=== PATIENT | female | born 1950 | race Caucasian/White ===

== ENCOUNTER 2018-07-03 19:23 | Inpatient (IN) | payer MEDICARE, OTHER ==
[~2018-07-03] VITALS: Ht 157.5 cm; Wt 88.4 kg
[~2018-07-03 19:23] MED LIST: ASPI-378 PO; CHOL500016 PO; COEN200C11 PO; ENAL2.5T PO; FAMO-12 PO; NEBI5TAB2 PO; OMEP-96 PO; PROM1SUP4 PO; RANO1000 PO; SERT-274 PO; SIMV-13 PO
[2018-07-03] MEDS ORDERED: SODIUM CHLORIDE 0.9% 500 ML IV ONE (19:40)
[2018-07-03] MEDS ORDERED: NALOXONE HCL 1MG/ML 2ML SYRINGE IV ONE (19:45)
[2018-07-03] MEDS: MIDAZOLAM DRIP 50 mg/50mL 50 ML IV SCH (19:58)
[2018-07-03] MEDS ORDERED: MIDAZOLAM DRIP 50 mg/50mL 50 ML IV ONE (20:04)
[2018-07-03] MEDS ORDERED: IOHEXOL 350 MG/ML 100ML IJ ONE (20:06)
[2018-07-03] MEDS ORDERED: NOREPINEPHRINE 8 MG/250ML KIT 250 ML IV SCH (20:27)
[2018-07-03] MEDS ORDERED: fentaNYL Drip 2500mCg/250mlNS 250 ML IV SCH (20:27)
[2018-07-03 20:29] LABS: Basophils # (auto) 0.1 uL; Eosinophils # (auto) 0.4 uL; Mean Corpuscular Hgb Conc. 29.7 g/dL (32.0-36.0); Platelet Count (auto) 177 10^3/uL (140-450); Red Cell Distribution Width 15.1 % (11.8-14.3)
[2018-07-03 20:31] LABS: Basophils % (auto) 0.8 % (0.0-2.0); Eosinophils % (auto) 2.5 % (0.0-7.0); Hemoglobin 13.4 g/dL (12.2-16.2); Lymphocytes # (auto) 6.8 uL; Lymphocytes % (auto) 46.5 % (10.0-50.0); Mean Corpuscular Hemoglobin 28.1 pg (28.0-32.0); Mean Corpuscular Volume 94.6 fL (80.0-100.0); Monocytes # (auto) 0.5 uL; Monocytes % (auto) 3.4 % (0.0-12.0); Neutrophils # (auto) 6.8 uL; Neutrophils % (auto) 46.8 % (37.0-80.0); Red Blood Cells 4.75 10^6/uL (4.0-5.20); White Blood Cell 14.6 10^3/uL (4.4-10.8)
[2018-07-03] MEDS ORDERED: PROPOFOL 100 ML IV ONE (20:35)
[2018-07-03 20:43] LABS: Albumin 2.8 g/dL (3.4-5.0); Anion Gap 21 (5-15); Blood Urea Nitrogen 13 mg/dL (7-18); Calcium 7.7 mg/dL (8.5-10.1); Carbon Dioxide 14 mmol/L (21-32); Chloride 103 mmol/L (98-107); Glucose 334 mg/dL (74-106); Potassium 3.9 mmol/L (3.5-5.1); Sodium 138 mmol/L (136-145)
[2018-07-03 20:45] LABS: Alanine Aminotransferase 71 U/L (13-56); Aspartate Aminotransferase 86 U/L (15-37); BUN/Creatinine Ratio 10.5; GFR African American 55 mL/min; GFR Non-African American 46 mL/min; INR 1.12 (0.9-1.15); Partial Thromboplastin Time 43.6 sec (23.64-32.05)
[2018-07-03] MEDS ORDERED: cefTRIAXone 1GM/50ML D5W 50 ML IV ONE (20:45)
[2018-07-03 20:47] LABS: Alkaline Phosphatase 134 U/L (45-117); Bilirubin, Total 0.4 mg/dL (0.2-1.0); Total Protein 5.5 g/dL (6.4-8.2)
[2018-07-03 21:04] LABS: Urine Bacteria MOD /hpf (None Seen); Urine Blood Negative /uL (Negative); Urine Specific Gravity 1.004 (1.001-1.035); Urine WBC 3 /hpf (0 - 5)
[2018-07-03] MEDS: PROPOFOL 100 ML IV SCH ×2 (21:17→23:28)
[2018-07-03] MEDS ORDERED: InsuLIN R (HUMAN) 100 UNITS in SODIUM CHL 0.9% 99 ML IV SCH (21:18)
[2018-07-03] MEDS ORDERED: ONDANSETRON HCL 4 MG/2 ML VIAL IV PRN (21:30)
[2018-07-03] MEDS ORDERED: ASPirin 300 MG RECTAL SUPP PR ONE (21:30)
[2018-07-03] MEDS ORDERED: LEVOFLOXACIN 500MG 100 ML IV ONE (21:30)
[2018-07-03] MEDS ORDERED: DEXTROSE (50%) 50ML SYRG IV PRN ×2 (21:30)
[2018-07-03] MEDS ORDERED: InsuLIN REG 1unit/0.01ml Soln (100units/ml) IV ONE (21:30)
[2018-07-03] MEDS ORDERED: NITROGLYCERIN 0.4 MG SL TAB SL PRN (21:30)
[2018-07-03] MEDS ORDERED: MORPHINE SULF INJ 2 MG/ML SYRINGE 1ML IV PRN (21:30)
[2018-07-03] MEDS ORDERED: ENOXAPARIN SOD 100 MG/1 ML SYRINGE SC ONE (21:30)
[2018-07-03] MEDS ORDERED: AZITHROMYCIN 500MG/ 250ML 250 ML IV ONE (21:45)
[2018-07-03 21:53] LABS: Lactic Acid w/Reflex 10.1 mmol/L (0.4-2.0)
[2018-07-03 21:54] VITALS: BP 104/89
[2018-07-03 22:37] LABS: Alcohol, Urine < 3.0 mg/dL (0-5); Amphetamine Screen, Urine NEGATIVE (NEGATIVE); Barbiturate Scree,Urine NEGATIVE (NEGATIVE); Benzodiazephine Screen, Urine NEGATIVE (NEGATIVE); Cannabinoid Screen, Urine POSITIVE (NEGATIVE); Cocaine Screen, Urine NEGATIVE (NEGATIVE); Opiate Scree,Urine NEGATIVE (NEGATIVE); Phencyclidine Screen, Urine NEGATIVE (NEGATIVE)
[2018-07-03] MEDS ORDERED: SODIUM BICARBONATE 8.4 % INJ 50ML VIAL IV ONE (23:00)
[2018-07-03] MEDS: SODIUM CHLORIDE 0.9% 1,000 ML IV SCH (23:35)
[2018-07-03] MEDS ORDERED: FUROSEMIDE 20 MG/2 ML VIAL IV ONE (23:45)
[2018-07-04] VITALS (103 sets, daily range): BP systolic 79–165; BP diastolic 54–95
--- NOTE | 2018-07-04 | NUR ---
OPENING NOTE ASSUMED CARE OF PATIENT PATIENT RCVD LAYING ON BED IN SEMI-FOWLERS POSITION, INTUBATED AND SEDATED ON PROPOFOL, SEE IV SPREADSHEET FOR MEDICATIONS AND TITRATION. PATIENT RESPONDS TO LIGHT PAIN, VITAL SIGNS WITHIN NORMAL LIMITS, NO S/S OF DISTRESS NOTED, PATIENT DOES NOT APPEAR TO BE IN PAIN AT THIS TIME. VENTILATOR PLUGGED INTO RED OUTLET/PER VAP PROTOCOL. AMBU BAG AT BEDSIDE. NOTED SANTIAGO CATHETER IN PLACE AND DRAINING TO GRAVITY. 20 G IV TO ERIST WRIST HEP LOCKED WITH NO S/S OF INFILTRATION OR PHLEBITIS. TRIPLE LUMEN CATH TO RIGHT IJ PATENT, INTACT AND ASYMPTOMATIC. MOUTH CARE AND SUCTION PROVIDED. BED IN LOWEST LOCKED POSITION, SIDE RAILS UP X2, PATIENT IN FULL VIEW OF NURSES STATION, SAFETY MAINTAINED, WILL CONTINUE TO MONITOR.
--- NOTE | 2018-07-04 00:30 | NUR ---
BM/BATH/BED/CHANGE LARGE BROWN COLORED WATERY BM PATIENT GIVEN PARTIAL BATH. CLEANED WITH SOAP AND WATER, FULL LINEN AND GOWN CHANGE PATIENT TOLERATED WELL
--- NOTE | 2018-07-04 01:00 | NUR ---
FAMILY AT BEDSIDE PER DAUGHTER "MY MOTHER WOULD NOT WANT TO LIVE THIS WAY, SHE WOULD NOT WANT TUBES HAVING TO KEEP HER ALIVE." PER DAUGHTER SHE WILL COME BACK IN THE MORNING TO CHANGE PATIENT TO DNR STATUS. DAY SHIFT RN MADE AWARE OF THIS
--- NOTE | 2018-07-04 01:10 | NUR ---
BM/BATH/BED/CHANGE LARGE BROWN COLORED WATERY BM PATIENT GIVEN PARTIAL BATH. CLEANED WITH SOAP AND WATER, FULL LINEN AND GOWN CHANGE PATIENT TOLERATED WELL
[2018-07-04] MEDS: ACCU-CHEK COMFORT CURVE STRIP VI SCH ×11 (01:12→10:22)
[2018-07-04] MEDS: InsuLIN REG 1unit/0.01ml Soln (100units/ml) SC SCH ×2 (01:12→06:00)
[2018-07-04] MEDS: PROPOFOL 100 ML IV SCH (01:54)
--- NOTE | 2018-07-04 02:00 | NUR ---
FAMILY LEFT THE BEDSIDE FOR THE NIGHT
[2018-07-04] MEDS: ACETAMINOPHEN 325 MG TAB PO PRN (02:15)
--- NOTE | 2018-07-04 02:30 | NUR ---
BM/BATH/BED/CHANGE LARGE BROWN COLORED WATERY BM PATIENT GIVEN PARTIAL BATH. CLEANED WITH SOAP AND WATER, FULL LINEN AND GOWN CHANGE PATIENT TOLERATED WELL
--- NOTE | 2018-07-04 03:30 | NUR ---
C-DIFF SAMPLE SENT TO LAB
[2018-07-04 03:45] LABS: Albumin 2.9 g/dL (3.4-5.0); Calcium 7.6 mg/dL (8.5-10.1); Potassium 3.3 mmol/L (3.5-5.1)
[2018-07-04 03:48] LABS: BUN/Creatinine Ratio 19.6
[2018-07-04 04:00] LABS: Bilirubin, Total 0.5 mg/dL (0.2-1.0); Total Protein 5.5 g/dL (6.4-8.2)
[2018-07-04 04:01] LABS: Basophils # (auto) 0 uL; Basophils % (auto) 0.3 % (0.0-2.0); Eosinophils # (auto) 0 uL; Eosinophils % (auto) 0.1 % (0.0-7.0); Hemoglobin 13.9 g/dL (12.2-16.2); Lymphocytes # (auto) 0.5 uL; Lymphocytes % (auto) 5.4 % (10.0-50.0); Mean Corpuscular Hemoglobin 27.8 pg (28.0-32.0); Mean Corpuscular Volume 84.3 fL (80.0-100.0); Monocytes # (auto) 0.3 uL; Monocytes % (auto) 3.5 % (0.0-12.0); Neutrophils # (auto) 8.9 uL; Neutrophils % (auto) 90.7 % (37.0-80.0); Platelet Count (auto) 167 10^3/uL (140-450); Red Blood Cells 4.99 10^6/uL (4.0-5.20); Red Cell Distribution Width 13.5 % (11.8-14.3); White Blood Cell 9.8 10^3/uL (4.4-10.8)
[2018-07-04] MEDS: MIDAZOLAM DRIP 50 mg/50mL 50 ML IV SCH (04:30)
[2018-07-04] MEDS ORDERED: IOHEXOL 350 MG/ML 100ML IJ ONE (08:01)
--- NOTE | 2018-07-04 09:00 | NUR ---
2D ECHO DONE. SEE EMR FOR RESULTS.
--- NOTE | 2018-07-04 09:40 | NUR ---
DR. WAYNE HERE TO SEE PATIENT. SEE MD NOTES AND EMR FOR ANY NEW ORDERS.
[2018-07-04] MEDS: SODIUM CHLORIDE 0.9% 1,000 ML IV SCH ×2 (09:57→12:15)
[2018-07-04] MEDS ORDERED: ASPirin 81 mg TAB PO SCH (10:00)
[2018-07-04] MEDS ORDERED: HEPARIN SODIUM (PORCINE) 5000 UNITS/ML 1ML VIAL SC SCH (10:00)
[2018-07-04] MEDS ORDERED: LEVOFLOXACIN 500MG 100 ML IV SCH (10:00)
[2018-07-04] MEDS: FLORASTOR (S. BOULARDII) 250 MG CAP PO SCH (10:20)
[2018-07-04] MEDS: PANTOPRAZOLE 40 MG TAB PO SCH (10:20)
--- NOTE | 2018-07-04 10:50 | NUR ---
DR. PEREZ HERE TO SEE PATIENT. SEE MD NOTES AND EMR FOR ANY NEW ORDERS.
--- NOTE | 2018-07-04 11:00 | NUR ---
WOUND CARE NOTE: IN TO ASSESS PATIENT'S SKIN AT THIS TIME D/T LOW ARUNA SCORE/INTUBATION STATUS. PATIENT RECENTLY ADMITTED TO [facility] WITH DIAGNOSIS OF CARDIO PULMONARY RESUSCITATION. PATIENT IS CURRENTLY INTUBATED, SEDATED. CURRENT ARUNA SCORE IS 10. PATIENT IS WOUND FREE AT THIS TIME. WITH RED BUT BLANCHABLE BILATERAL HEELS, AND PINK BLANCHABLE BONY PROMINENCES TO ALL OTHER BONY PROMINENCES. APPLIED OPTIFOAM GENTLE SACRAL DRESSING PREVENTATIVE AT THIS TIME. PATIENT REPOSITIONED ONTO LEFT SIDE, REDISTRIBUTING PRESSURE POINTS WITH PILLOWS/WEDGES. RECOMMEND: FREQUENT TURN SCHEDULE Q 2 HOURS, PRN CONDITION PERMITS, WITH PRESSURE REDISTRIBUTION USING PILLOWS/WEDGES, BID/PRN APPLICATION WITH MOISTURE BARRIER CREAM, COVERING UPPER MEDIAL SACRUM WITH OPTIFOAM GENTLE SACRAL DRESSING PREVENTATIVE, OFFLOADING HEELS WITH PILLOWS OR KIANA FOAM BOOTS, DIETARY CONSULT, CONTINUED MONITORING BY WOUND CARE TEAM.
[2018-07-04] MEDS ORDERED: FUROSEMIDE 40 MG/4 ML VIAL IV ONE (11:45)
[2018-07-04] MEDS ORDERED: SODIUM CHLORIDE 0.9% 1,000 ML IV SCH (11:45)
[2018-07-04] MEDS: PIPERACILLIN-TAZOB 3.375GM 100 ML IV SCH ×2 (12:00→17:58)
[2018-07-04] MEDS ORDERED: NALOXONE HCL 1MG/ML 2ML SYRINGE IV ONE (12:41)
[2018-07-04] MEDS ORDERED: DEXTROSE (50%) 50ML SYRG IV ONE (12:41)
[2018-07-04] MEDS ORDERED: EPINEPHrine HCL 1 MG/10 ML SYRG IV ONE (12:41)
--- NOTE | 2018-07-04 12:47 | NUR ---
Respiratory note: PER DR. Jade WASHINGTON'S ORDERS, CHANGED PT VENT SETTINGS TO AC 14, 600, +6, 30%. PT TOLERATING CHANGES WELL. RN AWARE OF CHANGES. WILL CONTINUE TO MONITOR.
[2018-07-04] MEDS: POTASSIUM CHL 20MEQ/100ML 100 ML IV SCH ×2 (13:26→14:47)
[2018-07-04] MEDS: ALBUTEROL SULF 2.5 MG/0.5ML(0.5%) NEB SOLN NEB SCH ×3 (16:04→22:30)
[2018-07-04] MEDS: IPRATROPIUM BROM 0.5 MG/2.5ML INH SOL NEB SCH ×3 (16:04→22:30)
--- NOTE | 2018-07-04 16:11 | NUR ---
DR. MICHAEL MADE AWARE OF US DUPLEX ARTERIAL STUDY AT THIS TIME. NO NEW ORDERS OBTAINED AT THIS TIME.
--- NOTE | 2018-07-04 16:30 | NUR ---
CALL OUT TO DR. HORNER TO LET HIM KNOW THE RESULTS OF THE US DOPLER STUDY. AWAITING CALL BACK.
[2018-07-04] MEDS ORDERED: HEPARIN DRIP/D5W 100UNITS/ML 250 ML IV SCH (17:21)
[2018-07-04] MEDS ORDERED: HEPARIN SODIUM (PORCINE) 5000 UNITS/ML 1ML VIAL IV ONE (17:30)
[2018-07-04 17:47] LABS: Basophils # (auto) 0 uL; Basophils % (auto) 0.3 % (0.0-2.0); Eosinophils # (auto) 0 uL; Hematocrit 40.2 % (36.0-46.0); Hemoglobin 13.5 g/dL (12.2-16.2); Lymphocytes # (auto) 0.8 uL; Lymphocytes % (auto) 8.5 % (10.0-50.0); Mean Corpuscular Hgb Conc. 33.6 g/dL (32.0-36.0); Mean Corpuscular Volume 83.2 fL (80.0-100.0); Monocytes # (auto) 0.2 uL; Monocytes % (auto) 2.3 % (0.0-12.0); Neutrophils # (auto) 8.6 uL; Neutrophils % (auto) 88.9 % (37.0-80.0); Nucleated Red Blood Cells % 0.1 %; Platelet Count (auto) 145 10^3/uL (140-450); Red Blood Cells 4.84 10^6/uL (4.0-5.20); Red Cell Distribution Width 13.9 % (11.8-14.3); White Blood Cell 9.6 10^3/uL (4.4-10.8)
[2018-07-04] MEDS: FUROSEMIDE 40 MG/4 ML VIAL IV SCH (17:57)
[2018-07-04 19:00] LABS: INR 1.31 (0.9-1.15); Partial Thromboplastin Time 39.9 sec (23.64-32.05)
--- NOTE | 2018-07-04 19:55 | NUR ---
Patient is taken to ct by Farhat VALERIO and Derek LAL.
--- NOTE | 2018-07-04 20:00 | NUR ---
HEPARIN DRIP HEPARIN DRIP KEPT AT 1700 UNITS /HR ORDERED. PATIENT WAS RECEIVING 1800 UNIS/HR.
--- NOTE | 2018-07-04 20:25 | NUR ---
PATIENT IS BACK FROM CT WITHOUT ANY INCIDENT. VITAL SIGNS ARE STABLE.
[2018-07-04] MEDS ORDERED: cefTRIAXone 1GM/50ML D5W 50 ML IV SCH (21:00)
[2018-07-04] MEDS ORDERED: AZITHROMYCIN 500MG/ 250ML 250 ML IV SCH (22:00)
--- NOTE | 2018-07-04 23:30 | NUR ---
Patient bathe/linen change Patient given complete chlorhexidine bath. Skin integrity assessed for any changes. Linens changed. Patient repositioned for comfort.
[2018-07-05] VITALS (106 sets, daily range): BP systolic 73–127; BP diastolic 36–72
[2018-07-05] MEDS: PIPERACILLIN-TAZOB 3.375GM 100 ML IV SCH ×4 (00:23→17:34)
[2018-07-05] MEDS: MIDAZOLAM DRIP 50 mg/50mL 50 ML IV SCH ×3 (01:28→22:02)
[2018-07-05] MEDS: ALBUTEROL SULF 2.5 MG/0.5ML(0.5%) NEB SOLN NEB SCH ×6 (02:29→22:26)
[2018-07-05] MEDS: IPRATROPIUM BROM 0.5 MG/2.5ML INH SOL NEB SCH ×6 (02:29→22:26)
[2018-07-05] MEDS: FUROSEMIDE 40 MG/4 ML VIAL IV SCH ×2 (06:23→17:34)
[2018-07-05 06:38] LABS: Basophils # (auto) 0 uL; Basophils % (auto) 0.5 % (0.0-2.0); Eosinophils # (auto) 0 uL; Eosinophils % (auto) 0.3 % (0.0-7.0); Hematocrit 35.5 % (36.0-46.0); Hemoglobin 11.8 g/dL (12.2-16.2); Lymphocytes % (auto) 12.9 % (10.0-50.0); Mean Corpuscular Hemoglobin 27.7 pg (28.0-32.0); Mean Corpuscular Hgb Conc. 33.1 g/dL (32.0-36.0); Mean Corpuscular Volume 83.7 fL (80.0-100.0); Monocytes # (auto) 0.3 uL; Monocytes % (auto) 3.5 % (0.0-12.0); Neutrophils # (auto) 6.6 uL; Neutrophils % (auto) 82.8 % (37.0-80.0); Platelet Count (auto) 134 10^3/uL (140-450); Red Blood Cells 4.25 10^6/uL (4.0-5.20); Red Cell Distribution Width 14.1 % (11.8-14.3)
[2018-07-05 07:01] LABS: Calcium 7.5 mg/dL (8.5-10.1); Potassium 3.6 mmol/L (3.5-5.1)
[2018-07-05 07:04] LABS: Albumin 2.4 g/dL (3.4-5.0); BUN/Creatinine Ratio 18.4; Bilirubin, Total 1.1 mg/dL (0.2-1.0); Magnesium 1.8 mg/dL (1.6-2.6)
[2018-07-05 07:26] LABS: INR 1.31 (0.9-1.15)
[2018-07-05 07:41] LABS: Partial Thromboplastin Time > 170.0 sec (23.64-32.05)
--- NOTE | 2018-07-05 07:43 | NUR ---
CALL FROM LAB REPORTING APTT 170. HEPARIN DRIP STOPPED PER PROTOCOL AND WILL DECREASE BY 300 IN 1 HOUR.
[2018-07-05] MEDS: SODIUM CHLORIDE 0.9% 1,000 ML IV SCH (08:15)
--- NOTE | 2018-07-05 08:40 | NUR ---
HEPARIN RESUMED AT 1100 UNITS/HR PER PROTOCOL.
--- NOTE | 2018-07-05 08:51 | NUR ---
DR. HORNER HERE TO SEE PATIENT. DR. HORNER WAS TOLD ABOUT THE POSITIVE BLOOD CULTURE AND CURRENT ANTIBIOTICS PATIENT IS ON. SINCE NO C&S ORDERS TO REMAIN THE SAME AT THIS TIME. SEE MD NOTES AND EMR FOR ANY NEW ORDERS.
[2018-07-05] MEDS ORDERED: HEPARIN DRIP/D5W 100UNITS/ML 250 ML IV SCH (09:00)
--- NOTE | 2018-07-05 09:10 | NUR ---
DR. BAE HERE TO SEE PATIENT. SEE MD NOTES AND EMR FOR ANY NEW ORDERS.
[2018-07-05] MEDS: NOREPINEPHRINE 8 MG/250ML KIT 250 ML IV SCH (10:32)
[2018-07-05] MEDS: PANTOPRAZOLE 40 MG TAB PO SCH (11:01)
[2018-07-05] MEDS: FLORASTOR (S. BOULARDII) 250 MG CAP PO SCH (11:01)
[2018-07-05] MEDS: ASPirin 81 mg TAB PO SCH (11:01)
[2018-07-05 11:49] LABS: INR 1.17 (0.9-1.15)
--- NOTE | 2018-07-05 11:49 | NUR ---
NUTRITION CONSULT/ASSESSMENT NOTES Please refer to link notes of nutrition screen form filed under the intervention section of the plan of care for further details. Est. Needs: 1350 kcal to 1800 kcal (15-20 kcal/kgBW), 73 gms to 91 gms pro (0.8-1.0 gms/kgBW). Will continue to monitor pertinent labs and reassess nutrient need prn Thank you for this consult. Addendum: 07/05/18 at [address] Amended: Links added.
[2018-07-05 12:01] LABS: Partial Thromboplastin Time 140.3 sec (23.64-32.05)
--- NOTE | 2018-07-05 12:30 | NUR ---
DR. OLIVERA HERE TO SEE PATIENT. SEE MD NOTES AND EMR FOR ANY NEW ORDERS.
--- NOTE | 2018-07-05 12:40 | NUR ---
DR. WASHINGTON HERE TO SEE PATIENT. SEE MD NOTES AND EMR FOR ANY NEW ORDERS.
--- NOTE | 2018-07-05 19:00 | NUR ---
OPENING NOTES ASSUMED CARE, ON VENT SIMV MODE, ON SEDATION WITH VERSED, LEVOPHED AND HEPARIN DRIP INFUSING IN THE RIGHT INTERNAL JUGULAR VEIN, SEE SPREADSHEET FOR TITRATION, OGT IN PLACE, SANTIAGO CATHETER DRAINING TO A CLEAR YELLOW URINE. BED IN LOWEST POSITION WITH SIDE RAILS UP, BED ALARM ON. WILL CONTINUE CARE.
[2018-07-05 19:46] LABS: INR 1.06 (0.9-1.15)
--- NOTE | 2018-07-05 20:05 | NUR ---
APTT 45, NO BOLUS OF HEPARIN GIVEN BUT HEPARIN DRIP INCREASED TO 2ML AND TITRATED TO 800 UNITS. NEXT PT/PTT DRAW @0200.
[2018-07-05] MEDS: HEPARIN DRIP/D5W 100UNITS/ML 250 ML IV SCH (20:15)
--- NOTE | 2018-07-05 22:28 | NUR ---
RR 30'S-40'S, RAVIN RT AT BEDSIDE AND SWITCHED VENT SETTING TO AC MODE.
[2018-07-06] VITALS (108 sets, daily range): BP systolic 82–143; BP diastolic 41–81
[2018-07-06] MEDS: PIPERACILLIN-TAZOB 3.375GM 100 ML IV SCH ×4 (00:03→17:41)
[2018-07-06 02:12] LABS: Basophils # (auto) 0 uL; Basophils % (auto) 0.4 % (0.0-2.0); Eosinophils # (auto) 0.1 uL; Hematocrit 35.3 % (36.0-46.0); Hemoglobin 11.6 g/dL (12.2-16.2); Lymphocytes # (auto) 0.8 uL; Lymphocytes % (auto) 8.7 % (10.0-50.0); Mean Corpuscular Hemoglobin 27.6 pg (28.0-32.0); Mean Corpuscular Hgb Conc. 32.9 g/dL (32.0-36.0); Mean Corpuscular Volume 83.8 fL (80.0-100.0); Monocytes # (auto) 0.3 uL; Monocytes % (auto) 2.7 % (0.0-12.0); Neutrophils # (auto) 8.3 uL; Neutrophils % (auto) 87.2 % (37.0-80.0); Platelet Count (auto) 135 10^3/uL (140-450); Red Blood Cells 4.21 10^6/uL (4.0-5.20); Red Cell Distribution Width 14.3 % (11.8-14.3); White Blood Cell 9.5 10^3/uL (4.4-10.8)
[2018-07-06] MEDS: ALBUTEROL SULF 2.5 MG/0.5ML(0.5%) NEB SOLN NEB SCH ×6 (02:27→22:08)
[2018-07-06] MEDS: IPRATROPIUM BROM 0.5 MG/2.5ML INH SOL NEB SCH ×6 (02:27→22:08)
[2018-07-06 02:31] LABS: Cholesterol 131 mg/dL (< 200); Triglycerides 98 mg/dL (< 150)
[2018-07-06 02:32] LABS: Albumin 2.5 g/dL (3.4-5.0); BUN/Creatinine Ratio 16.4; Calcium 7.6 mg/dL (8.5-10.1); Magnesium 1.8 mg/dL (1.6-2.6); Potassium 3.4 mmol/L (3.5-5.1)
[2018-07-06 02:33] LABS: HDL Cholesterol 45 mg/dL (40-59); LDL Cholesterol 65 mg/dL (< 100)
[2018-07-06 02:35] LABS: Bilirubin, Total 1.2 mg/dL (0.2-1.0); Total Protein 5.6 g/dL (6.4-8.2)
[2018-07-06 02:51] LABS: INR 1.07 (0.9-1.15); Partial Thromboplastin Time 60.6 sec (23.64-32.05)
--- NOTE | 2018-07-06 02:56 | NUR ---
LEVOPHED OFF, BP 138/64, HR 79.
--- NOTE | 2018-07-06 03:05 | NUR ---
APTT 60.6, HEPARIN DRIP MAINTAINED @ 800 UNITS, NO BOLUS, NO CHANGE PER PROTOCOL.
--- NOTE | 2018-07-06 04:00 | NUR ---
MORNING CARE COMPLETE BED BATH DONE, COMPLETE LINENS AND GOWN CHANGED. REPOSITIONED FOR COMFORT.
--- NOTE | 2018-07-06 04:30 | NUR ---
BILATERAL BIPEDAL PULSES NOTED THROUGH DOPPLER.
--- NOTE | 2018-07-06 04:36 | NUR ---
DRESSING IN THE LEFT FOOT FROM IO SITE CHANGED, NO BLEEDING NOTED.
--- NOTE | 2018-07-06 04:51 | NUR ---
POTASSIUM LEVEL K 3.4 RELAYED TO CORIN IBARRA, NEW ORDER GIVEN, K RIDER 20MEQ IV ONCE. WILL CARRY OUT AN ORDER AFTER HAD BEEN READ BACK AND VERIFIED.
[2018-07-06] MEDS ORDERED: POTASSIUM CHL 20MEQ/100ML 100 ML IV ONE (05:00)
[2018-07-06] MEDS: FUROSEMIDE 40 MG/4 ML VIAL IV SCH ×2 (05:28→17:41)
--- NOTE | 2018-07-06 06:00 | NUR ---
LEAKING OF NGT NOTED, COMPLETE LINENS AND GOWN CHANGED. REPOSITIONED FOR COMFORT.
--- NOTE | 2018-07-06 06:17 | NUR ---
OFF VERSED, OPENS EYES OCCASIONALLY BUT WITHOUT SUSTAINED EYE CONTACT, RESPONDS TO PAINFUL STIMULI.
--- NOTE | 2018-07-06 06:56 | NUR ---
CLOSING NOTES RESTING ON BED WITH NO SIGNS OF DISTRESS, OFF SEDATION, STILL ON VENT.
--- NOTE | 2018-07-06 08:39 | NUR ---
DR. WASHINGTON HERE TO SEE PATIENT. SEE MD NOTES AND EMR FOR ANY NEW ORDERS.
[2018-07-06 08:56] LABS: INR 1.08 (0.9-1.15); Partial Thromboplastin Time 45.4 sec (23.64-32.05)
--- NOTE | 2018-07-06 09:19 | NUR ---
APTT RESULT 45.4. HEPARIN WILL BE INCREASED BY 200 UNITS/HOUR AND PTPTT RECHECKED IN 6 HOURS.
[2018-07-06] MEDS: ASPirin 81 mg TAB PO SCH (09:42)
[2018-07-06] MEDS: FLORASTOR (S. BOULARDII) 250 MG CAP PO SCH (09:42)
[2018-07-06] MEDS: NOREPINEPHRINE 8 MG/250ML KIT 250 ML IV SCH (09:43)
[2018-07-06] MEDS: PANTOPRAZOLE 40 MG TAB PO SCH (09:43)
[2018-07-06] MEDS ORDERED: MAGNESIUM SULFATE 1GM/100ML 100 ML IV ONE (13:15)
--- NOTE | 2018-07-06 13:15 | NUR ---
DR. OLIVERA HERE TO SEE PATIENT. SEE MD NOTES AND EMR FOR ANY NEW ORDERS.
[2018-07-06 15:27] LABS: INR 1.08 (0.9-1.15)
--- NOTE | 2018-07-06 15:30 | NUR ---
APTT RESULTS 58.0 NO CHANGE NEEDED CONTINUE WITH CURRENT DOSE OF 1000 UNITS/HR.
--- NOTE | 2018-07-06 16:10 | NUR ---
DR. HORNER HERE TO SEE PATIENT SEE MD NOTES AND EMR FOR ANY NEW ORDERS.
[2018-07-06] MEDS: HEPARIN DRIP/D5W 100UNITS/ML 250 ML IV SCH (20:25)
--- NOTE | 2018-07-06 21:30 | NUR ---
BLOOD DRAW FOR PT/PTT DONE AND SPECIMEN SENT TO LAB.
--- NOTE | 2018-07-06 22:00 | NUR ---
PTT 61.4, HEPARIN DRIP MAINTAINED @ 1000 UNITS, NO CHANGE, NO BOLUS GIVEN PER PROTOCOL.
[2018-07-06 22:25] LABS: INR 1.08 (0.9-1.15); Partial Thromboplastin Time 61.4 sec (23.64-32.05)
[2018-07-06] MEDS: POTASSIUM CHL 10 Meq TABLET PO SCH (22:47)
--- NOTE | 2018-07-06 23:00 | NUR ---
POTASSIUM 20MG, 1/2 TAB GIVEN PER NGT, CRUSHED PILL AND MIXED WITH SMALL AMOUNT OF WATER. LIQUID FORM NOT FOUND IN THE PYXIS.
[2018-07-06] MEDS ORDERED: POTASSIUM CHL 20 Meq TABLET PO ONE (23:21)
[2018-07-07] VITALS (95 sets, daily range): BP systolic 92–146; BP diastolic 42–80
[2018-07-07] MEDS: PIPERACILLIN-TAZOB 3.375GM 100 ML IV SCH ×4 (00:27→17:56)
[2018-07-07] MEDS: IPRATROPIUM BROM 0.5 MG/2.5ML INH SOL NEB SCH ×6 (02:11→21:50)
[2018-07-07] MEDS: ALBUTEROL SULF 2.5 MG/0.5ML(0.5%) NEB SOLN NEB SCH ×6 (02:11→21:50)
[2018-07-07 03:53] LABS: Basophils # (auto) 0 uL; Basophils % (auto) 0.4 % (0.0-2.0); Eosinophils # (auto) 0.1 uL; Eosinophils % (auto) 1.7 % (0.0-7.0); Hematocrit 33.5 % (36.0-46.0); Hemoglobin 11.1 g/dL (12.2-16.2); Lymphocytes % (auto) 11.9 % (10.0-50.0); Mean Corpuscular Hemoglobin 27.7 pg (28.0-32.0); Mean Corpuscular Hgb Conc. 33.1 g/dL (32.0-36.0); Mean Corpuscular Volume 83.8 fL (80.0-100.0); Monocytes # (auto) 0.2 uL; Monocytes % (auto) 2.2 % (0.0-12.0); Neutrophils # (auto) 7.3 uL; Neutrophils % (auto) 83.8 % (37.0-80.0); Platelet Count (auto) 119 10^3/uL (140-450); Red Cell Distribution Width 14.2 % (11.8-14.3); White Blood Cell 8.7 10^3/uL (4.4-10.8)
--- NOTE | 2018-07-07 04:00 | NUR ---
APTT 55.6, NO CHANGE/BOLUS NEEDED PER PROTOCOL. HEPARIN DRIP MAINTAINED @ 1000 UNITS. PT'S APTT X 3 NOTED TO BE IN THERAPEUTIC RANGE. WILL KEEP HEPARIN DRIP @ 1000 UNITS. NEXT DRAW FOR APTT WILL BE @ 07/08/18, 0310.
[2018-07-07 04:28] LABS: INR 1.06 (0.9-1.15); Partial Thromboplastin Time 55.6 sec (23.64-32.05)
--- NOTE | 2018-07-07 04:30 | NUR ---
AM CARE ORAL HYGIENE DONE
[2018-07-07 04:37] LABS: Potassium 3.1 mmol/L (3.5-5.1)
[2018-07-07 04:41] LABS: BUN/Creatinine Ratio 16.8
--- NOTE | 2018-07-07 05:09 | NUR ---
POTASSIUM LEVEL LOW POTASSIUM LEVEL 3.1 REFERRED TO JULIAN IBARRA THRU PHONE, NEW ORDER GIVEN TO GIVE POTASSIUM 40 MEQ THRU NGT. WILL CARRY OUT THE ORDER.
[2018-07-07] MEDS ORDERED: POTASSIUM CHL 20 Meq TABLET PO ONE (05:15)
[2018-07-07] MEDS: FUROSEMIDE 40 MG/4 ML VIAL IV SCH ×2 (06:22→17:56)
--- NOTE | 2018-07-07 07:00 | NUR ---
REPORT RECEIVED FROM MASONRY TEACHER NURSE. PATIENT RESTING IN BED AT THIS TIME, INTUBATED AND RESPONSIVE. RESPIRATIONS EVEN AND UNLABORED. NO SIGNS OF ACUTE DISTRESS NOTED. BED IN LOW POSITION. WILL CONTINUE TO MONITOR.
--- NOTE | 2018-07-07 10:00 | NUR ---
PAGED DR WASHINGTON TO INFORM OF ABG RESULTS. 1008 MD CALLED BACK PER MD KEEP PATIENT ON SIMV SETTING TOLERATED IF NEEDED SWITCH BACK TO AC MODE. ORDERS NOTED IN CHART.
[2018-07-07] MEDS: POTASSIUM CHL 10 Meq TABLET PO SCH ×2 (10:14→22:00)
[2018-07-07] MEDS: FLORASTOR (S. BOULARDII) 250 MG CAP PO SCH (10:14)
[2018-07-07] MEDS: PANTOPRAZOLE 40 MG TAB PO SCH (10:14)
[2018-07-07] MEDS: ASPirin 81 mg TAB PO SCH (10:14)
--- NOTE | 2018-07-07 11:28 | NUR ---
DR OLIVERA AT BEDSIDE TO ASSESS PATIENT AND DISCUSS PLAN OF CARE. ALL ORDERS NOTED IN CHART.
[2018-07-07] MEDS ORDERED: VANCOMYCIN PER PHARMACY 0 MG IV SCH (12:15)
[2018-07-07] MEDS ORDERED: VANCOMYCIN 750 MG in D5W 5% 250 ML IV SCH (14:00)
--- NOTE | 2018-07-07 14:04 | NUR ---
DR WASHINGTON AT BEDSIDE TO ASSESS PATIENT AND DISCUSS PLAN OF CARE. MD MADE AWARE THAT PATIENT HAD TO BE PLACED ON AC MODE ALMOST 2 HOURS AGTER IMV SETTING CHANGE DUE TO INCREASED RR AND CHANGE IN VS. NO NEW ORDERS AT THIS TIME.
--- NOTE | 2018-07-07 15:19 | NUR ---
Nutrition Follow-up Notes Wt.: 84.2 kg Pt continues to be intubated sedated with no family by beside. per records pt s/p cardiopul arrest and NSTEMI. pt is currently NPO with no new diet order Est. Needs: 1350 kcal to 1800 kcal (15-20 kcal/kgBW), 73 gms to 91 gms pro (0.8-1.0 gms/kgBW). Will continue to monitor pertinent labs and reassess nutrient need prn Labs: BUN 24 H, CREAT 1.43 H, CA 8.6 L, ALB 2.5 L, GLU 116 H Skin: Praveen scale 11, high risk puncture wound on ankle and dermatitis per RN doc GI: Pt had 50 ml BM 07/06 per [employer] adf consultant. PES: Altered nutrition related lab values r/t current/chronic medical condition aeb hyperglycemia, elev, renal labs, Trop I, hyperbilirubinemia, hypocalcemia and severe hypoalbuminemia Increased nutrient needs r/t current medical condition aeb intubated, sedated, severe, hypoalbuminemia, NPO. Obesity r/t excessive food intake aeb 182% IBW, BMI 36.6 kg/m2 and increased body adiposity Will continue to monitor NPO status, skin status, pertinent labs and weight trend. F/u in 2-3 days. Rec.: 1.) If still NPO in next 48 hrs, consider alternate nutrition support if medically appropriate. 2.) EN support preferred with formula choice of jevity 1.2 Abhi @ 60 m/hr goal rate as tolerated. 3.) If Albumin level continues trending down, consider Prostat 1 pkt BID. 4.) Consider daily MVI with minerals and Asc acid 500 mgs BID. 5.) Advance gradually to oral diet when medically appropriate. 6.) Refer to RD for further nutrition educ. and weight monitoring upon discharge. 7.) Continue current plan of care.
[2018-07-07] MEDS: VANCOMYCIN 750 MG in D5W 5% 250 ML IV SCH (15:32)
[2018-07-07] MEDS: HEPARIN DRIP/D5W 100UNITS/ML 250 ML IV SCH (20:15)
--- NOTE | 2018-07-07 22:00 | NUR ---
PT. HAS NGT AND UNABLE TO SWALLOW/PT. INTUBATED/POTASSIUM EXTENDED RELEASE HELD FOR NOW-WILL GET RX CHANGED.
[2018-07-07] MEDS ORDERED: POTASSIUM EFFERVESENT TAB 25 MEQ GT ONE (23:30)
[2018-07-08] VITALS (82 sets, daily range): BP systolic 98–160; BP diastolic 44–103
[2018-07-08] MEDS: PIPERACILLIN-TAZOB 3.375GM 100 ML IV SCH ×4 (00:21→17:18)
[2018-07-08] MEDS: IPRATROPIUM BROM 0.5 MG/2.5ML INH SOL NEB SCH ×5 (02:04→22:46)
[2018-07-08] MEDS: ALBUTEROL SULF 2.5 MG/0.5ML(0.5%) NEB SOLN NEB SCH ×5 (02:04→22:46)
[2018-07-08 04:08] LABS: Basophils # (auto) 0.1 uL; Basophils % (auto) 0.6 % (0.0-2.0); Eosinophils # (auto) 0.2 uL; Eosinophils % (auto) 2.4 % (0.0-7.0); Hemoglobin 12.1 g/dL (12.2-16.2); Lymphocytes # (auto) 0.9 uL; Lymphocytes % (auto) 10.8 % (10.0-50.0); Mean Corpuscular Hemoglobin 27.7 pg (28.0-32.0); Mean Corpuscular Hgb Conc. 33.4 g/dL (32.0-36.0); Monocytes # (auto) 0.2 uL; Monocytes % (auto) 2.7 % (0.0-12.0); Neutrophils # (auto) 7.2 uL; Neutrophils % (auto) 83.5 % (37.0-80.0); Nucleated Red Blood Cells % 0.3 %; Platelet Count (auto) 139 10^3/uL (140-450); Red Blood Cells 4.35 10^6/uL (4.0-5.20); White Blood Cell 8.6 10^3/uL (4.4-10.8)
[2018-07-08 04:18] LABS: INR 0.98 (0.9-1.15); Partial Thromboplastin Time 43.2 sec (23.64-32.05)
[2018-07-08 04:25] LABS: Potassium 3.7 mmol/L (3.5-5.1)
[2018-07-08] MEDS: FUROSEMIDE 40 MG/4 ML VIAL IV SCH ×2 (06:22→17:18)
--- NOTE | 2018-07-08 07:00 | NUR ---
REPORT RECEIVED FROM HEALTH INSURANCE AGENT NURSE. PATIENT RESTING IN BED AT THIS TIME, INTUBATED AND SEDATED. RESPIRATIONS EVEN AND UNLABORED. NO SIGNS OF ACUTE DISTRESS NOTED. BED IN LOW POSITION. WILL CONTINUE TO MONITOR.
[2018-07-08] MEDS: ASPirin 81 mg TAB PO SCH (10:08)
[2018-07-08] MEDS: POTASSIUM EFFERVESENT TAB 25 MEQ GT SCH (10:08)
[2018-07-08] MEDS: FLORASTOR (S. BOULARDII) 250 MG CAP PO SCH (10:08)
[2018-07-08] MEDS: OMEPRAZOLE 20MG/10ML ORAL SUSP GT SCH (10:35)
--- NOTE | 2018-07-08 11:30 | NUR ---
DR OLIVERA AT BEDSIDE TO ASSESS PATIENT AND DISCUSS PLAN OF CARE. ORDERS NOTED IN CHART
[2018-07-08 12:43] LABS: INR 0.96 (0.9-1.15); Partial Thromboplastin Time 46.4 sec (23.64-32.05)
--- NOTE | 2018-07-08 13:30 | NUR ---
DR Jade WASHINGTON AT BEDSIDE TO ASSESS PATIENT AND DISCUSS PLAN OF CARE.
[2018-07-08] MEDS: VANCOMYCIN 750 MG in D5W 5% 250 ML IV SCH (15:04)
[2018-07-08] MEDS: HEPARIN DRIP/D5W 100UNITS/ML 250 ML IV SCH (17:20)
[2018-07-09] VITALS (85 sets, daily range): BP systolic 89–150; BP diastolic 55–86
[2018-07-09] MEDS: PIPERACILLIN-TAZOB 3.375GM 100 ML IV SCH ×4 (00:38→18:10)
[2018-07-09 01:35] LABS: INR 0.99 (0.9-1.15); Partial Thromboplastin Time 61.1 sec (23.64-32.05)
[2018-07-09] MEDS: IPRATROPIUM BROM 0.5 MG/2.5ML INH SOL NEB SCH ×6 (03:11→22:25)
[2018-07-09] MEDS: ALBUTEROL SULF 2.5 MG/0.5ML(0.5%) NEB SOLN NEB SCH ×6 (03:11→22:25)
[2018-07-09 04:45] LABS: BUN/Creatinine Ratio 18.6; Calcium 9.2 mg/dL (8.5-10.1); Magnesium 2.4 mg/dL (1.6-2.6)
[2018-07-09] MEDS: FUROSEMIDE 40 MG/4 ML VIAL IV SCH ×2 (06:09→18:09)
[2018-07-09] MEDS ORDERED: POTASSIUM EFFERVESENT TAB 25 MEQ GT ONE (06:30)
[2018-07-09] MEDS ORDERED: POTASSIUM EFFERVESENT TAB 25 MEQ ONE (06:31)
--- NOTE | 2018-07-09 08:00 | NUR ---
OPENING Report received from Sacha VALERIO, care initiated. Initial assessment completed. Patient is stable at this time. Bed is in lowest position. Will continue to monitor. Signed: 07/09/18 at 1414 by SN Yue <Co-Signature Required> Co-Signed: 07/09/18 at 1414 by Jose Juan Pulido RN
[2018-07-09] MEDS: ASPirin 81 mg TAB PO SCH (10:04)
[2018-07-09] MEDS: POTASSIUM EFFERVESENT TAB 25 MEQ GT SCH (10:05)
[2018-07-09] MEDS: FLORASTOR (S. BOULARDII) 250 MG CAP PO SCH (10:06)
[2018-07-09] MEDS: OMEPRAZOLE 20MG/10ML ORAL SUSP GT SCH (10:07)
--- NOTE | 2018-07-09 10:25 | NUR ---
Respiratory note: CPAP TRIAL INITIATED RR 12, VT 250, SPO2 93%, HR 94, BP 93/64. ABG TO FOLLOW
--- NOTE | 2018-07-09 10:39 | NUR ---
Respiratory note: TERMINATED CPAP TRIAL PER . PT'S RR WAS IN THE HIGH 30'S AND VT'S WERE IN THE LOW 200'S. PLACED PT BACK ON PREVIOUS SETTINGS.
--- NOTE | 2018-07-09 10:40 | NUR ---
CPAP TRIAL CPAP trial initiated at 1030. Patient taken off CPAP at 1040 d/t patients respiratory rate going up to the 30s and the tidal volume at 200. Patients respiratory rate is back down as AC mode was put back on. Dr. Wolf at the bedside, Fentanyl and Diprivan available if needed. Will continue to monitor. Signed: 07/09/18 at 1046 by SN Yue <Co-Signature Required> Co-Signed: 07/09/18 at 1046 by Jose Juan Pulido RN
[2018-07-09] MEDS: fentaNYL Drip 2500mCg/250mlNS 250 ML IV SCH (11:10)
--- NOTE | 2018-07-09 11:15 | NUR ---
FAMILY BEDSIDE Patients family is at bedside. Updated on plan of care and CPAP trial. Family brought in two miniature stone carvings of a dog and frog, placed at patients window. Concerns addressed at this time. Signed: 07/09/18 at 1130 by SN Yue <Co-Signature Required> Co-Signed: 07/09/18 at 1130 by Jose Juan Pulido RN
--- NOTE | 2018-07-09 12:05 | NUR ---
Nutrition Follow-up Notes Wt.: 84.1 kg today. Pt's intubated, non-sedated, no immediate family member at beside except for RNs during rounds this morning. Pt remains NPO, no order for alternate nutrition support yet at this time, for possible CPAP trial today, per nursing. Noted pt's for active Neurology consult. Est. Needs: 1350 kcal to 1800 kcal (15-20 kcal/kgBW), 73 gms to 91 gms pro (0.8-1.0 gms/kgBW). Will continue to monitor pertinent labs and reassess nutrient need prn Labs: Gluc 111 H, Na 135 L, K 3.0 L, Cl 96 L, BUN 31 H, Cr 1.67 H,Tpro 5.6 L, Alb 2.5 L Skin: Praveen scale 12, high risk, pt's upper sacrum moisture dermatitis, puncture wound on ankle per RN doc. Pls refer to barback's notes (07/04/18) for further details re: tx plans. GI: Pt had 50 ml stool output this morning per taxation accountant. PES: Altered nutrition related lab values r/t current/chronic medical condition aeb hyperglycemia, elev, renal labs, Trop I, hyperbilirubinemia, hypocalcemia and severe hypoalbuminemia Increased nutrient needs r/t current medical condition aeb intubated, sedated, severe, hypoalbuminemia, NPO. Obesity r/t excessive food intake aeb 182% IBW, BMI 36.6 kg/m2 and increased body adiposity Will continue to monitor NPO status, skin status, pertinent labs and weight trend. F/u in 2 to 3 days. Rec.: 1.) Advance gradually to oral diet when medically appropriate. 2.) If still NPO, consider alternate nutrition support/EN support with formula choice of Jevity 1.2 Abhi @ 60 m/hr goal rate as tolerated if medically appropriate. 3.) If Albumin level continues trending down, consider Prostat 1 pkt BID. 4.) Consider daily MVI with minerals and Asc acid 500 mgs BID. 5.)Refer to RD for further nutrition educ. and weight monitoring upon discharge. 6.) Continue current plan of care.
[2018-07-09] MEDS: VANCOMYCIN 750 MG in D5W 5% 250 ML IV SCH (14:51)
[2018-07-09] MEDS: PROPOFOL 100 ML IV SCH (18:02)
--- NOTE | 2018-07-09 19:23 | NUR ---
RESP NOTE : ABG OBTAINED. [facility] HOSPITALIST. AWAITING CALL BACK.
[2018-07-09] MEDS: SODIUM CHLORIDE 0.9% 1,000 ML IV SCH (20:00)
[2018-07-09] MEDS: HEPARIN DRIP/D5W 100UNITS/ML 250 ML IV SCH (20:15)
[2018-07-10] VITALS (88 sets, daily range): BP systolic 83–135; BP diastolic 45–106
[2018-07-10] MEDS: PIPERACILLIN-TAZOB 3.375GM 100 ML IV SCH ×4 (00:41→18:10)
[2018-07-10] MEDS: ALBUTEROL SULF 2.5 MG/0.5ML(0.5%) NEB SOLN NEB SCH ×6 (02:41→21:54)
[2018-07-10] MEDS: IPRATROPIUM BROM 0.5 MG/2.5ML INH SOL NEB SCH ×6 (02:41→21:54)
[2018-07-10 04:00] LABS: Basophils # (auto) 0.1 uL; Basophils % (auto) 0.9 % (0.0-2.0); Eosinophils # (auto) 0.4 uL; Eosinophils % (auto) 6.6 % (0.0-7.0); Hematocrit 32.6 % (36.0-46.0); Hemoglobin 11.1 g/dL (12.2-16.2); Lymphocytes # (auto) 1.6 uL; Lymphocytes % (auto) 24.8 % (10.0-50.0); Mean Corpuscular Hemoglobin 28.2 pg (28.0-32.0); Mean Corpuscular Volume 82.7 fL (80.0-100.0); Monocytes # (auto) 0.4 uL; Monocytes % (auto) 6.3 % (0.0-12.0); Neutrophils # (auto) 4.1 uL; Neutrophils % (auto) 61.4 % (37.0-80.0); Platelet Count (auto) 149 10^3/uL (140-450); Red Blood Cells 3.94 10^6/uL (4.0-5.20); Red Cell Distribution Width 13.8 % (11.8-14.3); White Blood Cell 6.6 10^3/uL (4.4-10.8)
[2018-07-10 04:12] LABS: Potassium 3.4 mmol/L (3.5-5.1)
[2018-07-10 04:22] LABS: Albumin 2.1 g/dL (3.4-5.0); BUN/Creatinine Ratio 18.6; Bilirubin, Total 0.7 mg/dL (0.2-1.0); Calcium 8.8 mg/dL (8.5-10.1); Total Protein 6.5 g/dL (6.4-8.2)
[2018-07-10] MEDS: FUROSEMIDE 40 MG/4 ML VIAL IV SCH ×2 (06:18→18:11)
--- NOTE | 2018-07-10 08:00 | NUR ---
OPENING Report received from Sacha VALERIO, care initiated. Initial assessment completed. Patient is stable in bed in the lowest position. Will continue to monitor. Signed: 07/10/18 at 1049 by SN Yue <Co-Signature Required> Co-Signed: 07/10/18 at 1049 by Miriam Richter RN
[2018-07-10] MEDS: FLORASTOR (S. BOULARDII) 250 MG CAP PO SCH (09:32)
[2018-07-10] MEDS: OMEPRAZOLE 20MG/10ML ORAL SUSP GT SCH (09:32)
[2018-07-10] MEDS: POTASSIUM EFFERVESENT TAB 25 MEQ GT SCH (09:32)
[2018-07-10] MEDS: ASPirin 81 mg TAB PO SCH (09:32)
[2018-07-10] MEDS ORDERED: POTASSIUM EFFERVESENT TAB 25 MEQ GT ONE (09:45)
[2018-07-10] MEDS: PROPOFOL 100 ML IV SCH (10:46)
[2018-07-10] MEDS: fentaNYL Drip 2500mCg/250mlNS 250 ML IV SCH (10:46)
--- NOTE | 2018-07-10 11:20 | NUR ---
CPAP TRIAL Patient placed on CPAP by James SMITH Verbalized to patient to relax and focus on her breathing. Continuing to monitor. Signed: 07/10/18 at 1123 by SN Yue <Co-Signature Required> Co-Signed: 07/10/18 at 1123 by Miriam Richter RN
--- NOTE | 2018-07-10 12:00 | NUR ---
DR HORNER AT BEDSIDE TO ASSESS PATIENT AND DISCUSS PLAN OF CARE. PER MD STOP HEPARIN DRIP AT THIS TIME AND START PATIENT ON HEPARIN 5000 UNITS SQ TID. ALL ORDERS NOTED IN CHART.
[2018-07-10] MEDS: SODIUM CHLORIDE 0.9% 1,000 ML IV SCH (12:40)
--- NOTE | 2018-07-10 15:04 | NUR ---
DR Armando FRANCIS AT BEDSIDE TO ASSESS PATIENT AND DISCUSS PLAN OF CARE. ORDERS NOTED IN CHART.
[2018-07-10] MEDS: HEPARIN SODIUM (PORCINE) 5000 UNITS/ML 1ML VIAL SC SCH ×2 (15:14→21:42)
--- NOTE | 2018-07-10 15:30 | NUR ---
EXTUBATED Patient was extubated by James LAL. Patient placed on Bi-Pap, tolerating well, patient stable. Call blanco within reach, bed in lowest position. Will continue to monitor.
--- NOTE | 2018-07-10 17:15 | NUR ---
PATIENT SWALLOWING Patient was able to swallow ice chips and water without issues. Placed on 2L/NC, saturation 96-97%. No signs of distress. Will continue to monitor. Signed: 07/10/18 at 1722 by SN Yue <Co-Signature Required> Co-Signed: 07/10/18 at 1722 by Miriam Richter RN
--- NOTE | 2018-07-10 19:30 | NUR ---
Opening Shift Note Assumed care of patient, awake and alert, cooperative to nursing care, easily fell asleep. Breathing on O2NC 2LPM, No S/S of distress/SOB, desaturation on room air. Denied pain. TLC at left IJ infusing antibiotic and NS, CDi site, flushed well. Marshall's cath hung to gravity with clear yellowish urine. Flexiseal in place with liquid dark greenish stool in the tubing. Bed in low possition,call light within reach, all alarms are audible, fall and safety precaution in place. Instructed on POC and to call for assist PRN, will continue to monitor for changes Q1hr and PRN.
--- NOTE | 2018-07-10 20:30 | NUR ---
Linens changed Pt has weak muscle strength, unable to hold a water cup, spilled water over the bed, will check and offer Pt water q2 and prn. Complete linens changed. Continue care.
--- NOTE | 2018-07-10 22:00 | NUR ---
Condition update Pt v/s and condition stable. Pt cooperated, didn't know where she is and what happened to her. Oriented Pt to place and situation, will evaluate LOC again later. Continue care.
--- NOTE | 2018-07-10 23:21 | NUR ---
Bed management supervisor hot dip tinning required an ICU bed. Pt's case and condition notified to Hospitalist. Pt's condition is stable. Raffaele IBARRA ordered to downgrade the Pt to S[place]IAGO. Continue care.
[2018-07-11] VITALS: BP 124/62
--- NOTE | 2018-07-11 00:45 | NUR ---
Bed assignment Bed 262 was assigned to Pt. Notified Pt again about the transfer and room number, Pt acknowledged. Pt belonging and supplies gathered and prepared.
[2018-07-11] MEDS: PIPERACILLIN-TAZOB 3.375GM 100 ML IV SCH ×3 (00:49→11:30)
[2018-07-11 01:00] VITALS: BP 108/67
--- NOTE | 2018-07-11 01:20 | NUR ---
Report given to Judith VALERIO.
--- NOTE | 2018-07-11 01:45 | NUR ---
Transferred Changed ICU bed to S[place]IAGO bed, linens changed. All belongings transferred with Pt. Pt leaving with monitor and portable O2, condition stable, no s/s of distress.
[2018-07-11] MEDS: ACETAMINOPHEN 325 MG TAB PO PRN (02:06)
--- NOTE | 2018-07-11 02:34 | NUR ---
Pt stable, resting in bed. Forgetful but seems to be oriented enough to not try to get out of bed. Water provided per request. Stated generalized pain, Tylenol given. Will continue to monitor.
[2018-07-11] MEDS: IPRATROPIUM BROM 0.5 MG/2.5ML INH SOL NEB SCH ×6 (02:37→22:00)
[2018-07-11] MEDS: ALBUTEROL SULF 2.5 MG/0.5ML(0.5%) NEB SOLN NEB SCH ×6 (02:37→22:00)
[2018-07-11] MEDS ORDERED: VANCOMYCIN 750 MG in D5W 5% 250 ML IV SCH (03:00)
[2018-07-11 04:00] VITALS: BP 128/70
[2018-07-11] MEDS: FUROSEMIDE 40 MG/4 ML VIAL IV SCH ×2 (05:58→18:19)
[2018-07-11] MEDS: SODIUM CHLORIDE 0.9% 1,000 ML IV SCH ×2 (06:33→21:44)
[2018-07-11] MEDS: HEPARIN SODIUM (PORCINE) 5000 UNITS/ML 1ML VIAL SC SCH ×3 (06:34→21:43)
[2018-07-11 06:36] LABS: Basophils # (auto) 0 uL; Basophils % (auto) 0.7 % (0.0-2.0); Eosinophils # (auto) 0.3 uL; Eosinophils % (auto) 5.3 % (0.0-7.0); Hematocrit 32.3 % (36.0-46.0); Hemoglobin 10.7 g/dL (12.2-16.2); Lymphocytes # (auto) 0.9 uL; Mean Corpuscular Hemoglobin 27.7 pg (28.0-32.0); Mean Corpuscular Hgb Conc. 33.2 g/dL (32.0-36.0); Mean Corpuscular Volume 83.4 fL (80.0-100.0); Monocytes # (auto) 0.5 uL; Neutrophils # (auto) 4.4 uL; Platelet Count (auto) 158 10^3/uL (140-450); Red Blood Cells 3.87 10^6/uL (4.0-5.20); White Blood Cell 6.3 10^3/uL (4.4-10.8)
[2018-07-11 06:43] LABS: INR 0.99 (0.9-1.15); Partial Thromboplastin Time 29.6 sec (23.64-32.05)
[2018-07-11 06:58] LABS: Albumin 2.3 g/dL (3.4-5.0); BUN/Creatinine Ratio 20.3; Calcium 8.8 mg/dL (8.5-10.1); Potassium 3.7 mmol/L (3.5-5.1)
--- NOTE | 2018-07-11 07:00 | NUR ---
Pt remained stable throughout shift. No S/S of distress. No swallowing difficulties noted. Tylenol was given for pain when pt arrived on unit and tolerated well and was able to sleep comfortably. Report given to AM shift, care endorsed.
[2018-07-11 07:01] LABS: Bilirubin, Total 0.6 mg/dL (0.2-1.0); Total Protein 6.5 g/dL (6.4-8.2)
[2018-07-11 08:00] VITALS: BP 138/74
[2018-07-11] MEDS: POTASSIUM EFFERVESENT TAB 25 MEQ GT SCH (10:24)
[2018-07-11] MEDS: ASPirin 81 mg TAB PO SCH (10:24)
[2018-07-11] MEDS: OMEPRAZOLE 20MG/10ML ORAL SUSP GT SCH (10:33)
[2018-07-11] MEDS: FLORASTOR (S. BOULARDII) 250 MG CAP PO SCH (10:33)
[2018-07-11] MEDS: Glucerna Carbsteady SHAKE Vanilla 8oz PO SCH ×3 (11:30→21:44)
[2018-07-11 12:00] VITALS: BP 146/88
[2018-07-11] MEDS: HYDROcodone-ACET 5/325MG TAB PO PRN ×2 (12:08→18:35)
--- NOTE | 2018-07-11 14:10 | NUR ---
PATIENT PULLED OUT TRIPPLE LUMEN IJ CENTRAL LINE. LINE WAS INTACT. SPOUSE INFORMED.
--- NOTE | 2018-07-11 14:23 | NUR ---
Nutrition Follow-up Notes Wt.: 83.5 kg today. Pt's successfully extubated yesterday, on oxygen via nasal cannula, asleep, no immediate family member when rounded this morning. Pt's no signs of distress noted earlier, currently on Mechanical Soft Consistent Carb with Glucerna Shakes 1 carton QID, no order for food intake yet at this time. Noted pt's for active Neurology consult. Est. Needs: 1350 kcal to 1800 kcal (15-20 kcal/kgBW), 73 gms to 91 gms pro (0.8-1.0 gms/kgBW). Will continue to monitor pertinent labs and reassess nutrient need prn Labs: Na 131 L, Cl 92 L, BUN 38 H, Cr 1.87 H, Alb 2.3 L; HbA1c 5.3 wnl Skin: Praveen scale 12, high risk, pt's upper sacrum moisture dermatitis, puncture wound on ankle per RN doc. Pls refer to combatant diver officer's notes (07/04/18) for further details re: tx plans. GI: Pt had 50 ml stool output this morning per database reporting consultant. PES: Altered nutrition related lab values r/t current/chronic medical condition aeb hyperglycemia, elev, renal labs, Trop I, hyperbilirubinemia, hypocalcemia and severe hypoalbuminemia Increased nutrient needs r/t current medical condition aeb intubated, sedated, severe, hypoalbuminemia, NPO. Obesity r/t excessive food intake aeb 182% IBW, BMI 36.6 kg/m2 and increased body adiposity Will continue to monitor PO intake, skin status, pertinent labs and weight trend. F/u in 3 to 5 days. Rec.: 1.) Consider Mechanical Soft Cardiac: 2 gms Na, Low Chol, Low Fat diet. 2.) Consider close supervision and feeding assistance prn during meals. 3.) If Albumin level continues trending down with improved renal labs, consider Prostat 1 pkt BID. 4.) Consider daily MVI with minerals and Asc acid 500 mgs BID prn. 5.) Refer to RD for further nutrition educ. and weight monitoring upon discharge. 6.) Continue current plan of care.
[2018-07-11] MEDS ORDERED: cefTRIAXone 1GM/50ML D5W 50 ML IV ONE (15:00)
--- NOTE | 2018-07-11 15:20 | NUR ---
ASSUMING CARE OF PT. REPORT RECEIVED FROM RNADIS. UNABLE TO ASSESS PT AT THIS TIME MACHO, PICC LINE RN, IS AT THE BEDSIDE TO PLACE A MIDLINE PT HAS NO IV ACCESS AFTER PULLING OUT HER CENTRAL LINE. CONTINUE TO MONITOR.
--- NOTE | 2018-07-11 15:30 | NUR ---
WOUND CARE NOTE: Weekly reevaluation by wound care team. Patient has been on skin integrity rounding due to low Praveen score. Latest Praveen score is 12. Patient remains with no wounds, and reddened blanching bilateral heels. Patient recently pulled out central line and PICC RN at beside attempting to get IV access. RECOMMENDATIONS: Continuation of previous skin/wound care orders; wound care team to continue to follow while Praveen is <18.
[2018-07-11 16:00] VITALS: BP 138/97
--- NOTE | 2018-07-11 16:15 | NUR ---
ASSESSMENT PT AWAKE AND A/O TO PERSON , PLACE AND . ABLE TO MOVE ALL EXTREMITIES ALTHOUGH SHE IS WEAK. LUNGS CLEAR THROUGHOUT. O2 AT 2 L/M VIA NC. TELE SR WITH NOTCHED P WAVE IN LEAD II AND ELEVATED ST IN LEAD V. PALPABLE PULSES TO ALL EXTREMITIES. ABD SOFT WITH + BOWEL SOUNDS. PT WITH RECTAL TUBE DRAINING BROWN GREEN LIQUID BM. SANTIAGO CATHETER DRAINING CLEAR YELLOW URINE. PT PULLED OUT TLC EARLIER TODAY. MACHO, PICC LINE RN, ATTEMPTED TO PLACE A MIDLINE WITHOUT SUCCESS. PT DENIES ANY PAIN. CONTINUE TO MONITOR.
--- NOTE | 2018-07-11 16:50 | NUR ---
TELEPHONE CONSENT OBTAINED FROM PT'S , GRABIEL MELENDREZ, TO PLACE A CENTRAL LINE. DR VELASQUEZ NOTIFIED THAT CONSENT OBTAINED AND HE WILL BE HERE SHORTLY TO PLACE THE LINE.
--- NOTE | 2018-07-11 17:00 | NUR ---
DR LOPEZ AT THE BEDSIDE TO PLACE TLC.
--- NOTE | 2018-07-11 17:15 | NUR ---
TLC PLACED AND RADIOLOGY CALLED FOR STAT CXR.
--- NOTE | 2018-07-11 17:18 | NUR ---
RADIOLOGY RAYSA , SALES AND PRODUCTION MANAGER, AT THE BEDSIDE AND CXR DONE. REVIEWED AT THE BEDSIDE BY DR LOPEZ. CENTRAL LINE RETRACTED BY DR LOPEZ.
--- NOTE | 2018-07-11 17:32 | NUR ---
CXR TAKEN AND REVIEWED BY DR LOPEZ AND PER , THE LINE IS IN GOOD POSITION AND AVAILABLE FOR USE.
[2018-07-11] MEDS ORDERED: CALCIUM CARB 500 MG CHEW TAB PO PRN (18:00)
[2018-07-11] MEDS: cefTRIAXone 1GM/50ML D5W 50 ML IV SCH (18:25)
--- NOTE | 2018-07-11 18:30 | NUR ---
STARTED ROCEPHIN DOSE WAS MISSED EARLIER WITH IV LINE OUT. PT'S STEPDAUGHTER AND FAMILY AT THE BEDSIDE TRYING TO ENCOURAGE PT TO EAT.
--- NOTE | 2018-07-11 18:35 | NUR ---
PAIN PT WITH C/O PAIN TO BOTH OF HER FEET, 07/25. MEDICATED WITH NORCO 5/325 ONE TABLET PO.
--- NOTE | 2018-07-11 19:05 | NUR ---
OPENING SHIFT RECEIVED REPORT FROM DAY SHIFT RN. ASSUMED CARE OF PATIENT. PATIENT IN BED WATCHING TV WITH NO SIGNS OR SYMPTOMS OF SOB, PAIN OR DISTRESS. CURRENTLY ON 2L 02 NASAL CANULA, 02 SAT - 97%. UPDATED PATIENT ON PLAN OF CARE. RIGHT X3 INTRAJUGULAR IV - CLEAN/DRY/INTACT. BED IN LOWEST POSITION, SIDE RAILS UP X2, CALL LIGHT WITHIN REACH. WILL CONTINUE TO MONITOR.
--- NOTE | 2018-07-11 19:40 | NUR ---
PT REPOSITIONED AND PARTIAL LINEN CHANGE DONE. RECTAL TUBE DC'D PER MD ORDER. TOLERATED WELL BY PT.
--- NOTE | 2018-07-11 20:30 | NUR ---
DR. CASIANO AT BEDSIDE PERFORMING ASSESSMENT.
--- NOTE | 2018-07-11 22:23 | NUR ---
Respiratory note: PT REFUSED TX, STATES SHE DOES NOT WANT ANYMORE TONIGHT, WILL TAKE THE NEXT ONE IN THE AM. PT AWARE TO CALL IF SHE BECOMES SOB. RN AWARE.
[2018-07-12] VITALS: BP_SYST 146; BP_SYST 152; BP_DIAS 76; BP_DIAS 92
[2018-07-12] MEDS: HYDROcodone-ACET 5/325MG TAB PO PRN ×3 (00:43→22:41)
--- NOTE | 2018-07-12 00:54 | NUR ---
ROUNDS PATIENT IN BED SLEEPING WITH NO SIGNS OR SYMPTOMS OF SOB, PAIN OR DISTRESS. CURRENTLY ON 2L 02 NASAL CANULA, 02 SAT - 97%. REPOSITIONED FOR COMFORT. BED IN LOWEST POSITION, SIDE RAILS UP X2, CALL LIGHT WITHIN REACH. WILL CONTINUE TO MONITOR.
[2018-07-12] MEDS: IPRATROPIUM BROM 0.5 MG/2.5ML INH SOL NEB SCH ×6 (01:05→22:18)
[2018-07-12] MEDS: ALBUTEROL SULF 2.5 MG/0.5ML(0.5%) NEB SOLN NEB SCH ×6 (01:05→22:18)
--- NOTE | 2018-07-12 02:04 | NUR ---
Respiratory note: PT SEEN FOR SCHEDULED MED NEB TX AT 0204. PT REFUSED HER TX AT THIS TIME, PT STATED THAT SHE JUST WANTS TO REST AND THAT SHE IS TIRED. NO DISTRESS NOTED. PT WAS SLEEPING WHEN ENTERING THE ROOM. HR 84 RR 16 POX 100% ON 3L NASAL CANNULA. PT AWARE TO CALL IF SHE CHANGES HER MIND. Addendum: 07/13/18 at 0334 by RAVIN ENRIQUE, RT DOCUMENTED THE INCORRECT DATE. WILL FIX WITH THE RIGHT DATE OF 07/13.
--- NOTE | 2018-07-12 03:37 | NUR ---
MORNING CARE PATIENT REFUSED MORNING CARE AND LINEN CHANGE AT THIS TIME. STATES, "I WANT TO DO IT LATER IN THE MORNING." REPOSITIONED FOR COMFORT. BED IN LOWEST POSITION, SIDE RAILS UP X2, CALL LIGHT WITHIN REACH. WILL CONTINUE TO MONITOR.
--- NOTE | 2018-07-12 03:50 | NUR ---
PAGED HOSPITALIST, AWAITING CALL BACK.
[2018-07-12 04:00] VITALS: BP 117/36
--- NOTE | 2018-07-12 04:50 | NUR ---
BLOOD DRAWN VIA TRIPLE LUMEN INTRAJUGULAR, SENT BLOOD TO LAB VIA BULLET.
[2018-07-12] MEDS ORDERED: ENALAPRIL MALEATE 2.5 MG TAB PO ONE (05:00)
--- NOTE | 2018-07-12 05:10 | NUR ---
HOSPITALIST CALLED BACK AND GAVE NEW ORDERS TO GIVE 1 DOSE VASOTEC 2.5 NOW AND TO START VASOTEC 2.5 MG BID. Addendum: 07/12/18 at 0543 by BETH YEE RN RN NOTIFIED HOSPITALIST OF HIGH BLOOD PRESSURE TRENDS.
[2018-07-12 05:24] LABS: Basophils # (auto) 0.1 uL; Basophils % (auto) 0.7 % (0.0-2.0); Eosinophils # (auto) 0.4 uL; Eosinophils % (auto) 5.4 % (0.0-7.0); Hemoglobin 11.6 g/dL (12.2-16.2); Lymphocytes # (auto) 1.1 uL; Lymphocytes % (auto) 13.6 % (10.0-50.0); Mean Corpuscular Hemoglobin 27.6 pg (28.0-32.0); Mean Corpuscular Hgb Conc. 33.1 g/dL (32.0-36.0); Mean Corpuscular Volume 83.3 fL (80.0-100.0); Monocytes # (auto) 0.5 uL; Monocytes % (auto) 6.1 % (0.0-12.0); Neutrophils # (auto) 6.2 uL; Neutrophils % (auto) 74.2 % (37.0-80.0); Platelet Count (auto) 200 10^3/uL (140-450); Red Cell Distribution Width 13.8 % (11.8-14.3); White Blood Cell 8.3 10^3/uL (4.4-10.8)
[2018-07-12 05:41] LABS: Albumin 2.5 g/dL (3.4-5.0); BUN/Creatinine Ratio 21.3; Potassium 3.7 mmol/L (3.5-5.1)
[2018-07-12 05:44] LABS: Bilirubin, Total 0.4 mg/dL (0.2-1.0)
[2018-07-12] MEDS: FUROSEMIDE 40 MG/4 ML VIAL IV SCH (06:00)
[2018-07-12] MEDS: Glucerna Carbsteady SHAKE Vanilla 8oz PO SCH ×4 (06:00→22:38)
[2018-07-12] MEDS: HEPARIN SODIUM (PORCINE) 5000 UNITS/ML 1ML VIAL SC SCH ×3 (06:01→22:42)
--- NOTE | 2018-07-12 06:20 | NUR ---
DR. HORNER CALLED AND GAVE ORDERS TO KEEP PATIENT NPO STARTING NOW.
--- NOTE | 2018-07-12 06:50 | NUR ---
END OF SHIFT PATIENT IN BED SLEEPING WITH NO SIGNS OR SYMPTOMS OF SOB, PAIN OR DISTRESS. CURRENTLY ON 2L , SAT - 98%. UPDATED PATIENT ON PLAN OF CARE. TRIPLE LUMEN INTRAJUGULAR - CLEAN/DRY/INTACT. BED IN LOWEST POSITION, SIDE RAILS UP X2, CALL LIGHT WITHIN REACH. WILL ENDORSE CARE TO DAY SHIFT RN.
--- NOTE | 2018-07-12 07:15 | NUR ---
DR LOPEZ AT BEDSIDE STATING CENTRAL LINE IS IN APPROPRIATE POSITION AND OK TO USE, DR AWARE IT HAS BEEN IN USE FOR NS INFUSION ORDERED
--- NOTE | 2018-07-12 08:20 | NUR ---
DR CASIANO AT BEDSIDE, EXAMINED PATIENT.
--- NOTE | 2018-07-12 08:30 | NUR ---
ASSESSMENT COMPLETED, SEE INTERVENTIONS PATIENT AWAKE/ALERT ORIENTED TO PERSON PLACE NO SIGNS RESP DISTRESS CALL LIGHT IN REACH, BED IN LOW POSITION
--- NOTE | 2018-07-12 08:45 | NUR ---
OOB TO CHAIR WITH PT, CALL LIGHT IN REACH
--- NOTE | 2018-07-12 09:15 | NUR ---
BACK TO BED WITH PT
--- NOTE | 2018-07-12 09:30 | NUR ---
DR OLIVERA AT BEDSIDE
[2018-07-12] MEDS: ASPirin 81 mg TAB PO SCH (10:00)
[2018-07-12] MEDS: OMEPRAZOLE 20MG/10ML ORAL SUSP GT SCH (10:00)
[2018-07-12] MEDS ORDERED: ENALAPRIL MALEATE 2.5 MG TAB PO SCH (10:00)
--- NOTE | 2018-07-12 10:00 | NUR ---
PAGED DR HORNER TO VERIFY RAW MILL OPERATOR PROCEDURE TODAY DUE TO RAW MILL OPERATOR STATING THEY DO NOT HAVE PATIENT ON THEIR LIST FOR PROCEDURES TODAY
[2018-07-12] MEDS: FLORASTOR (S. BOULARDII) 250 MG CAP PO SCH (10:01)
[2018-07-12] MEDS: POTASSIUM EFFERVESENT TAB 25 MEQ GT SCH (10:02)
[2018-07-12] MEDS: AZITHROMYCIN 250 MG TAB PO SCH (10:02)
--- NOTE | 2018-07-12 11:02 | NUR ---
REPORT GIVEN TO ADIS VALERIO
[2018-07-12 12:00] VITALS: BP 151/84
[2018-07-12] MEDS: SODIUM CHLORIDE 0.9% 1,000 ML IV SCH (14:40)
[2018-07-12 16:00] VITALS: BP 98/60
[2018-07-12] MEDS: cefTRIAXone 1GM/50ML D5W 50 ML IV SCH (17:41)
--- NOTE | 2018-07-12 20:00 | NUR ---
Opening Shift Note Assumed care of patient, awake and alert. No S/S of distress/SOB. Left foot pain noted with palpation. Dorsalis pedis pulses bilaterally palpable, with left foot noted to have non pitting edema. Instructed on NPO status after midnight and scheduled procedure tomorrow, patient verbalizes understanding. Instructed on POC and to call for assist PRN, will continue to monitor for changes frequently.
--- NOTE | 2018-07-12 20:40 | NUR ---
SKIN ASSESSMENT PATIENT WITH STOOL INCONTINENCE. NOTED TO HAVE MODERATE LOOSE/LIQUID BM IN BED. CLEANSED PERINEAL AREA WITH WARM SOAPY WATER, SANTIAGO CATHETER CARE, PARTIAL BED LINEN CHANGE DONE AND NEW GOWN PLACED ON PATIENT. INTRAGLUTEAL SKIN TEAR NOTED. PICTURES TAKEN AT THIS TIME FOR REFERENCE. WOUND CARE PAPER PLACED FOR TURRET LATHE TENDER. Z-GUARD BARRIER CREAM PLACED ON COCCYX/SACRUM. PATIENT REPOSITIONED FOR COMFORT. CONTINUE TO MONITOR.
[2018-07-12 20:43] VITALS: BP 109/81
[2018-07-12] MEDS: CARVEDILOL 3.125 MG TAB PO SCH (22:37)
[2018-07-12] MEDS: ZOLPIDEM TARTRATE 5 MG TAB PO PRN (22:43)
[2018-07-13] VITALS (8 sets, daily range): BP systolic 104–157; BP diastolic 49–88
--- NOTE | 2018-07-13 01:28 | NUR ---
PT STATUS PATIENT RESTING IN BED WITH NO S/S OF DISTRESS/SOB OR PAIN CALL LIGHT WITHIN EASY REACH CONTINUE TO MONITOR HR 84, POX 100%, RR 16, BP 140/80
[2018-07-13] MEDS: IPRATROPIUM BROM 0.5 MG/2.5ML INH SOL NEB SCH ×6 (02:00→22:27)
[2018-07-13] MEDS: ALBUTEROL SULF 2.5 MG/0.5ML(0.5%) NEB SOLN NEB SCH ×6 (02:00→22:27)
--- NOTE | 2018-07-13 02:04 | NUR ---
Respiratory note: Respiratory note: PT SEEN FOR SCHEDULED MED NEB TX AT 0204. PT REFUSED HER TX AT THIS TIME, PT STATED THAT SHE JUST WANTS TO REST AND THAT SHE IS TIRED. NO DISTRESS NOTED. PT WAS SLEEPING WHEN ENTERING THE ROOM. HR 84 RR 16 POX 100% ON 3L NASAL CANNULA. PT AWARE TO CALL IF SHE CHANGES HER MIND.
--- NOTE | 2018-07-13 04:55 | NUR ---
LAB DRAW FROM RIGHT IJ AND SENT TO LAB VIA BULLET
[2018-07-13 05:00] LABS: Basophils # (auto) 0.1 uL; Basophils % (auto) 1.2 % (0.0-2.0); Eosinophils # (auto) 0.4 uL; Eosinophils % (auto) 4.5 % (0.0-7.0); Lymphocytes % (auto) 13.2 % (10.0-50.0); Mean Corpuscular Hemoglobin 27.7 pg (28.0-32.0); Mean Corpuscular Hgb Conc. 33.4 g/dL (32.0-36.0); Mean Corpuscular Volume 82.9 fL (80.0-100.0); Monocytes # (auto) 0.4 uL; Monocytes % (auto) 5.1 % (0.0-12.0); Platelet Count (auto) 198 10^3/uL (140-450); Red Blood Cells 3.98 10^6/uL (4.0-5.20); Red Cell Distribution Width 13.5 % (11.8-14.3); White Blood Cell 7.9 10^3/uL (4.4-10.8)
[2018-07-13 05:16] LABS: INR 1.01 (0.9-1.15); Partial Thromboplastin Time 31.1 sec (23.64-32.05)
[2018-07-13 05:21] LABS: BUN/Creatinine Ratio 26.6; Magnesium 2.5 mg/dL (1.6-2.6); Potassium 3.8 mmol/L (3.5-5.1)
[2018-07-13] MEDS: HEPARIN SODIUM (PORCINE) 5000 UNITS/ML 1ML VIAL SC SCH ×3 (05:40→22:24)
[2018-07-13] MEDS: Glucerna Carbsteady SHAKE Vanilla 8oz PO SCH ×4 (06:00→22:00)
--- NOTE | 2018-07-13 06:00 | NUR ---
CHG WIPES/AM CARE COMPLETE BED BATH PROVIDED USING CHG WIPES. NEW GOWN PLACED ON PATIENT. OPTIFOAM PLACED ON SACRUM FOR PREVENTATIVE. PARTIAL LINEN CHANGE DONE. PATIENT REPOSITIONED IN BED FOR COMFORT.CALL LIGHT HANDED TO PATIENT. CONTINUE CARE.
--- NOTE | 2018-07-13 07:02 | NUR ---
END OF SHIFT NOTE PATIENT AWAKE IN BED WITH NO S/S OF DISTRESS SOB OR PAIN. RT AT BEDSIDE WITH BREATHING TREATMENT. CALL LIGHT WITHIN EASY . PATIENT HAS REMAINED NPO FOR PROCEDURE TODAY. WILL ENDORSE CARE TO DAY SHIFT RN.
[2018-07-13] MEDS: SODIUM CHLORIDE 0.9% 1,000 ML IV SCH (07:20)
--- NOTE | 2018-07-13 08:00 | NUR ---
Opening Shift Note Assumed care of patient @ 0730, awake and oriented x3, re-oriented to time. No S/S of distress/SOB or pain. Patient scheduled for heart cath today, instructed on NPO, verbalized understanding. Patient refused to removed wedding ring for procedure, will tape ring to finger. See interventions for complete assessment. Bed locked on low position, side rails up x2, bed alarms on at all times, call blanco within reach, instructed on POC and to call for assist PRN, will continue to monitor for changes Q1hr and PRN.
[2018-07-13] MEDS: FUROSEMIDE 40 MG/4 ML VIAL IV SCH (10:21)
--- NOTE | 2018-07-13 10:22 | NUR ---
Dr Roy at bedside, updated on patient's status. Will carry out new orders.
[2018-07-13] MEDS: CARVEDILOL 3.125 MG TAB PO SCH ×2 (10:29→22:10)
[2018-07-13] MEDS: PANTOPRAZOLE 40 MG TAB PO SCH (10:30)
[2018-07-13] MEDS: ASPirin 81 mg TAB PO SCH (10:30)
[2018-07-13] MEDS: POTASSIUM CHL 20 Meq TABLET PO SCH (10:30)
--- NOTE | 2018-07-13 10:30 | NUR ---
WOUND CARE NOTE: IN TO SEE PATIENT AT THIS TIME FOR NEW WOUND CONCERN. PATIENT WAS NOTED TO HAVE A NEW WOUND TO IGF SACRUM. WOUND PHOTO TAKEN UPON ASSESSMENT BY BEDSIDE NURSE FOR REFERENCE. PATIENT IS NO LONGER INTUBATED, SEDATED. SHE NOW IS IN SNATIAGO, BED 262. PATIENT HAS CURRENT ARUNA SCORE OF 13. PATIENT IS ABLE TO SELF TURN/REPOSITION SELF. SHE HAS DEVELOPED A SMALL 3 X 0.2 CM PARTIAL THICKNESS FISSURE TO THE INTRAGLUTEAL FOLD OF THE SACRUM. THERE IS MILD LIGHT RED MASD TO THE MEDIAL SACRAL/BUTTOCK AREA WELL. ALL BONY PROMINENCES ARE PINK, BLANCHABLE. APPLIED ZGUARD TO FISSURE, COVERED WITH OPTIFOAM GENTLE SACRAL DRESSING. RECOMMEND: ZGUARD BID/PRN. CONTINUE WITH OPTIFOAM GENTLE SACRAL DRESSING PREVENTATIVE. WOUND CARE TEAM WILL CONTINUE TO MONITOR. Addendum: 07/13/18 at 1546 by Miriam Cason RN Amended: Links added.
--- NOTE | 2018-07-13 10:34 | NUR ---
Patient's PO meds given per industrial laborer protocol with sips of water.
--- NOTE | 2018-07-13 10:40 | NUR ---
RT NOTE: PT REFUSED TX AT THIS TIME. NO SIGNS OF RESPIRATORY DISTRESS NOTED. LUNG SOUNDS CLEAR/DIMINISHED. ON 3L NC SPO2 98 HR 98 RR 16. PT AWARE THAT I WILL RETURN FOR NEXT SCHEDULED TX. WILL CONTINUE TO MONITOR.
--- NOTE | 2018-07-13 11:20 | NUR ---
Patient out of room via hospital bed to Front End Loader Operator, patient refused to remove wedding ring. Maximo VALERIO aware.
[2018-07-13] MEDS ORDERED: LIDOCAINE 2%HCL (LOCAL ANESTH.) INJ 20ML MDV ONE (12:23)
[2018-07-13] MEDS ORDERED: IODIXANOL 320MG/ML 100ML BTL IV ONE (12:23)
[2018-07-13] MEDS ORDERED: MIDAZOLAM HCL 1MG/1ML-2 ML VIAL ONE (12:48)
[2018-07-13] MEDS ORDERED: SODIUM CHL 0.9% 0 ML ONE (12:48)
[2018-07-13] MEDS ORDERED: ANGIOMAX 250 MG VIAL IV ONE (12:48)
[2018-07-13] MEDS ORDERED: fentaNYL CITRATE 100 MCG/2 ML VL ONE (12:48)
--- NOTE | 2018-07-13 13:17 | NUR ---
RT NOTE: UNABLE TO GIVE TX DUE TO PT BEING OFF UNIT FOR PROCEDURE. UNKNOWN ETA BACK TO ROOM. WILL CONTINUE TO MONITOR.
--- NOTE | 2018-07-13 13:40 | NUR ---
Patient back to room from Extrusion Line Operator connected to unit monitors, VS WNL, no S/S of SOB or pain. RT groin soft, no signs of bleeding noted, dressing dry and intact, palpable pedal pulses. Bed locked on low position, side rails up x2, bed alarms on at all times, call blanco within reach, instructed to call for needed assistance. Will continue to monitor.
--- NOTE | 2018-07-13 13:41 | NUR ---
Patient instructed to lay flat until 6pm, patient verbalized understanding.
--- NOTE | 2018-07-13 14:17 | NUR ---
PT Hold PT for patient as per IMAN Gaona, will have heart cath procedure. Addendum: 07/13/18 at 1418 by JODIE LOVE PTT Amended: Links added.
[2018-07-13] MEDS: FLORASTOR (S. BOULARDII) 250 MG CAP PO SCH (14:32)
[2018-07-13] MEDS: AZITHROMYCIN 250 MG TAB PO SCH (14:32)
--- NOTE | 2018-07-13 16:44 | NUR ---
Navarro catheter dc'd Order to discontinue navarro catheter. Navarro discontinued with clean technique following deflation of balloon. Patient tolerated well with no complaints of pain. Continue care.
[2018-07-13] MEDS: cefTRIAXone 1GM/50ML D5W 50 ML IV SCH (18:22)
--- NOTE | 2018-07-13 19:00 | NUR ---
OPENING NOTE ASSUMED CARE OF PT AT THIS TIME. REPORT RECEIVED FROM DAY SHIFT RN. POC REVIEWED, HEAD TO TOE ASSESSMENT COMPLETE, SEE INTERVENTION SPREADSHEET FOR COMPLETE DETAILS. PT ALERT AND ORIENTED X. ABLE TO EXPRESS NEEDS, USE CALL LIGHT. ANGIO SITE CDI. NO BLEEDING NOTED, SOFT AND NON TENDER. VSS. BED LOCKED AND IN LOWEST POSITION, SAFETY PRECAUTIONS IN PLACE. CALL LIGHT WITH IN REACH.
[2018-07-13] MEDS: HYDROcodone-ACET 5/325MG TAB PO PRN (20:40)
[2018-07-14] VITALS: BP 138/77
--- NOTE | 2018-07-14 02:22 | NUR ---
PT INCONTINENT OF STOOL AND URINE. PT CLEANED AND REPOSITIONED. PT HAS MOISTURE BREAKDOWN IN JERROD AREA. ZGUARD APPLIED TO JERROD AREA. PT TOLERATED WELL.
[2018-07-14] MEDS: ALBUTEROL SULF 2.5 MG/0.5ML(0.5%) NEB SOLN NEB SCH ×6 (02:38→22:59)
[2018-07-14] MEDS: IPRATROPIUM BROM 0.5 MG/2.5ML INH SOL NEB SCH ×6 (02:38→22:58)
[2018-07-14 04:00] VITALS: BP 133/95
[2018-07-14 05:50] LABS: Basophils # (auto) 0.1 uL; Basophils % (auto) 0.6 % (0.0-2.0); Eosinophils # (auto) 0.3 uL; Eosinophils % (auto) 2.6 % (0.0-7.0); Hematocrit 29.1 % (36.0-46.0); Hemoglobin 9.9 g/dL (12.2-16.2); Lymphocytes # (auto) 1.4 uL; Lymphocytes % (auto) 14.5 % (10.0-50.0); Mean Corpuscular Hgb Conc. 34.1 g/dL (32.0-36.0); Mean Corpuscular Volume 82.2 fL (80.0-100.0); Monocytes # (auto) 0.5 uL; Neutrophils # (auto) 7.4 uL; Neutrophils % (auto) 77.3 % (37.0-80.0); Platelet Count (auto) 208 10^3/uL (140-450); Red Blood Cells 3.55 10^6/uL (4.0-5.20); Red Cell Distribution Width 13.8 % (11.8-14.3); White Blood Cell 9.6 10^3/uL (4.4-10.8)
[2018-07-14] MEDS: SODIUM CHLORIDE 0.9% 1,000 ML IV SCH ×3 (05:52→17:51)
[2018-07-14] MEDS: Glucerna Carbsteady SHAKE Vanilla 8oz PO SCH ×4 (06:00→22:00)
[2018-07-14 06:03] LABS: Potassium 3.6 mmol/L (3.5-5.1)
[2018-07-14 06:12] LABS: BUN/Creatinine Ratio 25.3; Calcium 8.5 mg/dL (8.5-10.1)
[2018-07-14 07:45] VITALS: BP 119/71
--- NOTE | 2018-07-14 07:45 | NUR ---
Opening Shift Note Assumed care of patient @ 0730, awake and alert. No S/S of distress/SOB or pain. RT groin dressing dry and intact, no hematoma, bruising or signs of bleeding noted, palpable pedal pulses. See interventions for complete assessment. Bed locked on low position, side rails up x2, bed alarms on at all times, call blanco within reach, instructed on POC and to call for assist PRN, will continue to monitor for changes Q1hr and PRN.
[2018-07-14] MEDS: HEPARIN SODIUM (PORCINE) 5000 UNITS/ML 1ML VIAL SC SCH ×2 (09:38→18:00)
[2018-07-14] MEDS: FUROSEMIDE 40 MG/4 ML VIAL IV SCH (09:40)
[2018-07-14] MEDS: PANTOPRAZOLE 40 MG TAB PO SCH (09:40)
[2018-07-14] MEDS: ASPirin 81 mg TAB PO SCH (09:40)
[2018-07-14] MEDS: FLORASTOR (S. BOULARDII) 250 MG CAP PO SCH (09:41)
[2018-07-14] MEDS: POTASSIUM CHL 20 Meq TABLET PO SCH (09:41)
[2018-07-14] MEDS: AZITHROMYCIN 250 MG TAB PO SCH (09:41)
[2018-07-14] MEDS: CARVEDILOL 3.125 MG TAB PO SCH ×2 (09:41→22:22)
--- NOTE | 2018-07-14 10:30 | NUR ---
Patient incontinent of stool and urine, given perineal care. Skin integrity assessed for any changes, skin breakdown noted on perianal area, z- guard applied, optifoam placed. Partial linens changed done. Patient repositioned for comfort. Patient tolerated well.
--- NOTE | 2018-07-14 10:50 | NUR ---
Patient out of bed to chair with PT, fall precautions in placed. Patient tolerating well.
--- NOTE | 2018-07-14 11:16 | NUR ---
Dr Roy at bedside, updated on patient's status. Patient seen and examined. No new orders at this times.
[2018-07-14 11:52] VITALS: BP 110/77
[2018-07-14] MEDS ORDERED: SODIUM CHLORIDE 0.9% 1,000 ML IV SCH (12:15)
--- NOTE | 2018-07-14 12:59 | NUR ---
Patient transferred to bed from chair by PT. Fall precautions in placed. Patient tolerated well.
[2018-07-14] MEDS: HYDROcodone-ACET 5/325MG TAB PO PRN (14:16)
--- NOTE | 2018-07-14 15:19 | NUR ---
SANTIAGO pt transferred to floor AUR[facility]A,OTONIEL S transfered to [facility] floor via hospital bed on secured entrance monitor. All patient medications and personal belongings including earrings and dentures transfered with patient to receiving floor. Patient care transferred to Cherelle VALERIO.
[2018-07-14 16:43] VITALS: BP 139/76
--- NOTE | 2018-07-14 16:45 | NUR ---
re-assessment Per ss consult [facility] for safety, PT, medication management, vitals. Patient has been given a list of medicare providers. Per patient she has no preference on who provides service. MD order has been sent to [facility]. Per L[facility] has accepted and service to start 24-48 hrs post d/c. Pt agrees to discharge plan. Addendum: 07/14/18 at 1648 by Elenita Castañeda Amended: Links added.
[2018-07-14] MEDS: cefTRIAXone 1GM/50ML D5W 50 ML IV SCH (17:51)
[2018-07-14] MEDS ORDERED: HEPARIN SODIUM (PORCINE) 5000 UNITS/ML 1ML VIAL SC SCH (18:00)
--- NOTE | 2018-07-14 19:35 | NUR ---
Opening Shift Note Assumed care of patient, awake, alert and oriented x4. No S/S of distress/SOB or pain. Discussed on POC and for AICD placement tomorrow, consent signed by patient. Instructed on NPO after MN, patient verbalized understanding, call light within reach, bed in locked position, will continue to monitor for changes Q1hr and PRN.
[2018-07-14 20:12] LABS: INR 1.04 (0.9-1.15)
[2018-07-14 22:00] VITALS: BP 114/56
[2018-07-14] MEDS: ZOLPIDEM TARTRATE 5 MG TAB PO PRN (22:20)
[2018-07-15] MEDS: HEPARIN SODIUM (PORCINE) 5000 UNITS/ML 1ML VIAL SC SCH ×3 (02:00→18:00)
[2018-07-15] MEDS: IPRATROPIUM BROM 0.5 MG/2.5ML INH SOL NEB SCH ×6 (02:56→22:42)
[2018-07-15] MEDS: ALBUTEROL SULF 2.5 MG/0.5ML(0.5%) NEB SOLN NEB SCH ×6 (02:57→22:42)
--- NOTE | 2018-07-15 02:57 | NUR ---
Respiratory note: PT REFUSE MED NEB AT THIS TIME, PT NOTIFIED TO CALL RT IF SOB OCCURS
[2018-07-15 05:00] VITALS: BP 141/80
--- NOTE | 2018-07-15 05:00 | NUR ---
Bed bath done and CHG wipes done, linens changed, maintained on NPO, will continue to monitor
[2018-07-15] MEDS: Glucerna Carbsteady SHAKE Vanilla 8oz PO SCH ×3 (06:00→18:00)
--- NOTE | 2018-07-15 06:05 | NUR ---
IV insertion IV access obtained, via clean sterile technique by inserting 20 gauge catheter at LW after 1 attempt(s). IV secured properly. No trauma to site. Patient tolerated well. NOTE: []
[2018-07-15] MEDS: SODIUM CHLORIDE 0.9% 1,000 ML IV SCH (06:28)
[2018-07-15 06:30] LABS: Hematocrit 27.6 % (36.0-46.0); Hemoglobin 9.6 g/dL (12.2-16.2)
[2018-07-15 06:45] LABS: BUN/Creatinine Ratio 21.3; Calcium 8.7 mg/dL (8.5-10.1); Potassium 3.9 mmol/L (3.5-5.1)
--- NOTE | 2018-07-15 07:00 | NUR ---
Brought patient down to Pattern Cutter, oriented and not in distress. Endorsed to Lab Cath RN
[2018-07-15] MEDS ORDERED: BACITRACIN INJ 50000 UNIT VIAL ONE (07:17)
[2018-07-15] MEDS ORDERED: VANCOMYCIN HCL 1000 MG VL ONE (07:17)
[2018-07-15] MEDS ORDERED: MIDAZOLAM HCL 1MG/1ML-2 ML VIAL ONE (07:17)
[2018-07-15] MEDS ORDERED: fentaNYL CITRATE 100 MCG/2 ML VL ONE (07:17)
[2018-07-15] MEDS ORDERED: IOHEXOL 350 MG/ML 100ML IJ ONE (07:23)
[2018-07-15] MEDS ORDERED: HEPARIN IN NS 1000Units/500mL 0 ML ONE (07:33)
[2018-07-15] MEDS ORDERED: LIDOCAINE 2%HCL (LOCAL ANESTH.) INJ 20ML MDV ONE ×3 (07:33→07:55)
[2018-07-15] MEDS ORDERED: VANCOMYCIN 1GM/250ML 250 ML IV ONE (07:42)
[2018-07-15] MEDS: ASPirin 81 mg TAB PO SCH (10:00)
--- NOTE | 2018-07-15 10:10 | NUR ---
Respiratory note: UNABLE TO ADMINISTER MED NEB TX AT THIS TIME. PT AT PROCEDURE.
[2018-07-15] MEDS ORDERED: ceFAZolin 1GM 2 GM in D5W 5% 100 ML IV SCH (10:15)
[2018-07-15] MEDS: PANTOPRAZOLE 40 MG TAB PO SCH (11:02)
[2018-07-15] MEDS: FLORASTOR (S. BOULARDII) 250 MG CAP PO SCH (11:04)
[2018-07-15] MEDS: POTASSIUM CHL 20 Meq TABLET PO SCH (11:04)
[2018-07-15] MEDS: DOXYCYCLINE 100 MG TAB/CAP PO SCH ×2 (11:04→21:43)
[2018-07-15] MEDS: FUROSEMIDE 40 MG/4 ML VIAL IV SCH (11:05)
[2018-07-15] MEDS: CARVEDILOL 3.125 MG TAB PO SCH ×2 (11:05→21:48)
--- NOTE | 2018-07-15 11:11 | NUR ---
aspirin and helarin 1000 held per physician order
[2018-07-15] MEDS: ceFAZolin 1GM 2 GM in D5W 5% 100 ML IV SCH ×3 (11:12→21:48)
[2018-07-15] MEDS ORDERED: ceFAZolin 1GM/50ML 50 ML IV SCH (12:00)
[2018-07-15 13:00] VITALS: BP 135/83
--- NOTE | 2018-07-15 15:12 | NUR ---
Nutrition Follow-up Notes Wt.: 77.7 kg today. Noted 5.8 kg weight loss in last 3 days likely d/t ? fluid loss aeb on Lasix, negative I & Os for past few days. Pt's on oxygen via nasal cannula, asleep, no immediate family member when rounded this morning. Pt's NPO, no signs of distress noted earlier, resumed Consistent Carb diet with Glucerna Shakes 1 carton QID with adequate PO intake aeb 75% consumed meal on today's lunch. Est. Needs: 1350 kcal to 1800 kcal (15-20 kcal/kgBW), 73 gms to 91 gms pro (0.8-1.0 gms/kgBW). Will continue to monitor pertinent labs and reassess nutrient need prn Labs: Pertinent labs wnl today except for Na 134 L; Alb 2.5 L; HbA1c 5.3 wnl Skin: Praveen scale 16, mod risk, pt's upper sacrum moisture dermatitis, puncture wound on ankle per RN doc. Pls refer to food service's notes (07/13/18) for further details re: tx plans. GI: Pt had 3x BM this morning per getterer. PES: Altered nutrition related lab values r/t current/chronic medical condition aeb hyperglycemia, elev, renal labs, Trop I, hyperbilirubinemia, hypocalcemia and severe hypoalbuminemia Increased nutrient needs r/t current medical condition aeb intubated, sedated, severe, hypoalbuminemia, NPO. Obesity r/t excessive food intake aeb 182% IBW, BMI 36.6 kg/m2 and increased body adiposity Will continue to monitor PO intake, skin status, pertinent labs and weight trend. F/u in 3 to 5 days. Rec.: 1.) Consider Mechanical Soft Cardiac: 2 gms Na, Low Chol, Low Fat diet. 2.) Continue close supervision and feeding assistance prn during meals. 3.) If Albumin level continues trending down with improved renal labs, consider Prostat 1 pkt BID. 4.) Consider daily MVI with minerals and Asc acid 500 mgs BID prn. 5.) Refer to RD for further nutrition educ. and weight monitoring upon discharge. 6.) Continue current plan of care.
[2018-07-15] MEDS ORDERED: FURO1TAB33 PO (15:35)
[2018-07-15] MEDS ORDERED: DOX100T PO (15:35)
[2018-07-15] MEDS ORDERED: AZIT500T PO (15:35)
[2018-07-15] MEDS ORDERED: POTA1TAB61 PO (16:45)
[2018-07-15 17:00] VITALS: BP 125/88
--- NOTE | 2018-07-15 19:45 | NUR ---
Opening Shift Note Assumed care of patient, awake and alert. No S/S of distress/SOB. The patient c/o throbbing from the AICD sit and requested pain mediation. Severity is currently 6/10 pain. Will medicate with PRN pain medication. Instructed on POC and to call for assist PRN. Call light is within reach. Will continue to monitor for changes Q1hr and PRN.
[2018-07-15] MEDS: HYDROcodone-ACET 5/325MG TAB PO PRN (20:40)
[2018-07-15 21:00] VITALS: BP 115/54
[2018-07-15] MEDS: ZOLPIDEM TARTRATE 5 MG TAB PO PRN (21:49)
[2018-07-16] MEDS: Glucerna Carbsteady SHAKE Vanilla 8oz PO SCH (01:26)
[2018-07-16] MEDS: SODIUM CHLORIDE 0.9% 1,000 ML IV SCH ×2 (01:26→09:30)
--- NOTE | 2018-07-16 01:33 | NUR ---
PT DOES NOT WANT TO BE WOKEN UP FOR 0200 [facility] [place].
[2018-07-16] MEDS: IPRATROPIUM BROM 0.5 MG/2.5ML INH SOL NEB SCH ×3 (01:34→10:23)
[2018-07-16] MEDS: ALBUTEROL SULF 2.5 MG/0.5ML(0.5%) NEB SOLN NEB SCH ×3 (01:34→10:23)
[2018-07-16] MEDS: HEPARIN SODIUM (PORCINE) 5000 UNITS/ML 1ML VIAL SC SCH ×2 (02:00→10:00)
[2018-07-16 05:00] VITALS: BP 135/70
[2018-07-16 06:46] LABS: Basophils # (auto) 0.1 uL; Basophils % (auto) 0.8 % (0.0-2.0); Eosinophils # (auto) 0.2 uL; Eosinophils % (auto) 1.9 % (0.0-7.0); Hematocrit 30.9 % (36.0-46.0); Hemoglobin 10.4 g/dL (12.2-16.2); Lymphocytes # (auto) 1.4 uL; Lymphocytes % (auto) 14.1 % (10.0-50.0); Mean Corpuscular Hemoglobin 27.9 pg (28.0-32.0); Mean Corpuscular Hgb Conc. 33.5 g/dL (32.0-36.0); Mean Corpuscular Volume 83.3 fL (80.0-100.0); Monocytes # (auto) 0.5 uL; Monocytes % (auto) 4.7 % (0.0-12.0); Neutrophils # (auto) 7.7 uL; Neutrophils % (auto) 78.5 % (37.0-80.0); Platelet Count (auto) 249 10^3/uL (140-450); Red Blood Cells 3.71 10^6/uL (4.0-5.20); Red Cell Distribution Width 13.8 % (11.8-14.3); White Blood Cell 9.8 10^3/uL (4.4-10.8)
[2018-07-16 06:57] LABS: BUN/Creatinine Ratio 15.7; Calcium 8.7 mg/dL (8.5-10.1); Potassium 3.7 mmol/L (3.5-5.1)
--- NOTE | 2018-07-16 07:20 | NUR ---
Opening Shift Note Assumed care of patient, awake and alert. No S/S of distress/SOB or pain. Instructed on POC and to call for assist PRN, will continue to monitor for changes Q1hr and PRN. Bed locked in lowest position with two side rails up and call light in reach.
--- NOTE | 2018-07-16 07:25 | NUR ---
Closing note The patient is stable and resting in bed. Care has been endorsed to Leeanna VALERIO.
[2018-07-16 08:30] VITALS: BP 133/73
[2018-07-16] MEDS ORDERED: cefTRIAXone 1GM/50ML D5W 50 ML IV SCH (10:00)
[2018-07-16] MEDS: POTASSIUM CHL 20 Meq TABLET PO SCH (10:34)
[2018-07-16] MEDS: PANTOPRAZOLE 40 MG TAB PO SCH (10:34)
[2018-07-16] MEDS: FLORASTOR (S. BOULARDII) 250 MG CAP PO SCH (10:34)
[2018-07-16] MEDS: DOXYCYCLINE 100 MG TAB/CAP PO SCH (10:34)
[2018-07-16] MEDS: FUROSEMIDE 40 MG/4 ML VIAL IV SCH (10:34)
[2018-07-16] MEDS: ASPirin 81 mg TAB PO SCH (10:34)
[2018-07-16] MEDS: CARVEDILOL 3.125 MG TAB PO SCH (10:35)
--- NOTE | 2018-07-16 11:16 | NUR ---
PAGE AND SPOKE TO J2EE APPLICATION DEVELOPER AIR ANTISUBMARINE OFFICER WONG. SHE WILL CALL [employer] FOR TRANSPORT SERVICES AND CALL ME BACK.
--- NOTE | 2018-07-16 11:22 | NUR ---
PACE MAKER MESSAGING ARCHITECT AT BEDSIDE.
--- NOTE | 2018-07-16 11:49 | NUR ---
o/c note; Misty primary RN called stating pt is requesting transport home. I called [employer] and Henrik at [employer] has schedule pt to be picked up gurney transport to pt's home approx 1445- 1545 hrs. Cost of transport is $115.00. Primary stated pt is willing to pay for transport and will inform pt the cost of transport and to have pt call [employer] with credit card# if paying by credit card
--- NOTE | 2018-07-16 11:52 | NUR ---
PT Patient refused to do PT and stated she is going home today. Addendum: 07/16/18 at 1152 by JODIE LOVE PTT Amended: Links added.
[2018-07-16 12:30] VITALS: BP 151/90
[2018-07-16 13:49] VITALS: BP 150/80
--- NOTE | 2018-07-16 14:47 | NUR ---
Discharge instructions given as ordered. Encourage to follow up with PMD as instructed. All questions and concerns addressed. Patient verbalized understanding. Medication reconciliation form completed and copy given to patient.No Home medications held in Pharmacy and none to be returned to patient, and no needed vaccines given. IV removed with catheter intact, pressure dressing applied, IG removed with catheter intact patient tolerated well.
--- NOTE | 2018-07-16 15:15 | NUR ---
Patient taken to vehicle via [facility] with all personal belongings, accompanied by transportation and family member. No distress noted at time of departure.
== END 2018-07-16 16:51 | disposition home health service (06) | DRG 853 ==
LOC: ER 19:23 → EDUNIT# 19:23 → EDBD 19:23 → TELE 22:07 → ICU WEST 23:20 → DOU IN ICU 07-11 01:52 → TELE-CENTR 07-14 15:21
PROVIDERS: ADMIT Nurse Practitioner; ATTEND Internal Medicine
PROC: 5A12012 Performance of Cardiac Output, Single, Manual (ICD-10-PCS; principal; 2018-07-03)
PROC: 5A1955Z Respiratory Ventilation, Greater than 96 Consecutive Hours (ICD-10-PCS; 2018-07-03)
PROC: 0BH17EZ Insertion of Endotracheal Airway into Trachea, Via Natural or Artificial Opening (ICD-10-PCS; 2018-07-03)
PROC: 02HV33Z Insertion of Infusion Device into Superior Vena Cava, Percutaneous Approach (ICD-10-PCS; 2018-07-04)
PROC: B548ZZA Ultrasonography of Superior Vena Cava, Guidance (ICD-10-PCS; 2018-07-04)
PROC: B2111ZZ Fluoroscopy of Multiple Coronary Arteries using Low Osmolar Contrast (ICD-10-PCS; 2018-07-04)
PROC: B41F1ZZ Fluoroscopy of Right Lower Extremity Arteries using Low Osmolar Contrast (ICD-10-PCS; 2018-07-04)
PROC: B4101ZZ Fluoroscopy of Abdominal Aorta using Low Osmolar Contrast (ICD-10-PCS; 2018-07-04)
PROC: 5A09357 Assistance with Respiratory Ventilation, Less than 24 Consecutive Hours, Continuous Positive Airway Pressure (ICD-10-PCS; 2018-07-10)
PROC: 02HV33Z Insertion of Infusion Device into Superior Vena Cava, Percutaneous Approach (ICD-10-PCS; 2018-07-11)
PROC: 0JH608Z Insertion of Defibrillator Generator into Chest Subcutaneous Tissue and Fascia, Open Approach (ICD-10-PCS; 2018-07-15)
PROC: 02H63KZ Insertion of Defibrillator Lead into Right Atrium, Percutaneous Approach (ICD-10-PCS; 2018-07-15)
PROC: 02HK3KZ Insertion of Defibrillator Lead into Right Ventricle, Percutaneous Approach (ICD-10-PCS; 2018-07-15)
DX: A41.9 Sepsis, unspecified organism (principal); I21.4 Non-ST elevation (NSTEMI) myocardial infarction; I46.9 Cardiac arrest, cause unspecified; J69.0 Pneumonitis due to inhalation of food and vomit; E11.10 Type 2 diabetes mellitus with ketoacidosis without coma; I50.43 Acute on chronic combined systolic (congestive) and diastolic (congestive) heart failure; J96.00 Acute respiratory failure, unspecified whether with hypoxia or hypercapnia; N17.0 Acute kidney failure with tubular necrosis; G93.41 Metabolic encephalopathy; I49.01 Ventricular fibrillation; E44.0 Moderate protein-calorie malnutrition; E87.1 Hypo-osmolality and hyponatremia; G93.1 Anoxic brain damage, not elsewhere classified; I13.0 Hypertensive heart and chronic kidney disease with heart failure and stage 1 through stage 4 chronic kidney disease, or unspecified chronic kidney disease; E11.51 Type 2 diabetes mellitus with diabetic peripheral angiopathy without gangrene; E66.01 Morbid (severe) obesity due to excess calories; E78.5 Hyperlipidemia, unspecified; F12.90 Cannabis use, unspecified, uncomplicated; I25.5 Ischemic cardiomyopathy; F17.200 Nicotine dependence, unspecified, uncomplicated; N18.9 Chronic kidney disease, unspecified; I48.0 Paroxysmal atrial fibrillation; E11.22 Type 2 diabetes mellitus with diabetic chronic kidney disease; E87.6 Hypokalemia; Z74.01 Bed confinement status; Z68.37 Body mass index [BMI] 37.0-37.9, adult; Z79.01 Long term (current) use of anticoagulants; Z68.31 Body mass index [BMI] 31.0-31.9, adult; I25.2 Old myocardial infarction; Z82.49 Family history of ischemic heart disease and other diseases of the circulatory system; Z86.73 Personal history of transient ischemic attack (TIA), and cerebral infarction without residual deficits; Z95.5 Presence of coronary angioplasty implant and graft; Z95.810 Presence of automatic (implantable) cardiac defibrillator
CPT/HCPCS: 31500; 33249; 36415; 36600; 70450; 71045; 71275; 75625; 75710; 80048; 80053; 80061; 80202; 80307; 81001; 82010; 82805; 82962; 83036; 83605; 83735; 83880; 83930; 84132; 84484; 85014; 85018; 85025; 85379; 85610; 85730; 86850; 86900; 86901; 87040; 87070; 87077; 87081; 87186; 87205; 87493; 92950; 93005; 93306; 93454; 93926; 93970; 94002; 94003; 94640; 96361; 96365; 96367; 96375; 97110; 97163; 97530; 99152; 99291; G0378; J0690; J0696; J1815; J1956; J2250; J2405; J2543; J2704; J3480; J7060; Q9967